=== PATIENT | male | born 1935 | race Caucasian/White ===

== ENCOUNTER 2016-10-22 14:47 | Outpatient (CLI) | payer MEDICARE, OTHER | END 2016-10-22 14:48 | DX: R31.9 Hematuria, unspecified (principal) ==

== ENCOUNTER 2017-03-24 14:39 | Outpatient (CLI) | payer MEDICARE, OTHER ==
--- NOTE | 2017-03-24 16:09 | XRAY Report ---
TWO VIEW CHEST: 03/24/2017 CLINICAL INDICATION: COPD. COMPARISON: 06/17/2015. FINDINGS: Frontal and lateral views of the chest demonstrate a normal cardiac silhouette. The lungs remain hyperinflated, with emphysematous changes. No focal consolidation, effusion, or pneumothorax i s evident. IMPRESSION: STABLE EMPHYSEMA. NO EVIDENCE OF ACUTE CARDIOPULMONARY DISEASE. JOB #: [id number] EXT JOB #:[id number]
== END 2017-03-24 14:40 | disposition home or self-care (01) ==
LOC: DI 14:39
PROVIDERS: ATTEND Internal Medicine
DX: J44.9 Chronic obstructive pulmonary disease, unspecified (principal)
CPT/HCPCS: 71020

== ENCOUNTER 2017-08-11 17:36 | Outpatient (CLI) | payer MEDICARE, OTHER ==
[2017-08-11 17:34] LABS: CREATININE 1.2 mg/dL (0.6-1.2)
[2017-08-11] MEDS ORDERED: IOPAMIDOL-300 100 ML VIAL ONE (17:53)
[2017-08-11] MEDS ORDERED: IOPAMIDOL-300 100 ML VIAL IVP ONE (18:38)
--- NOTE | 2017-08-11 19:21 | CT Report ---
EXAM: CT HEAD EXAM DATE: 08/11/2017 06:25 PM. CLINICAL HISTORY: Fall, headache and dizziness, tinnitus. COMPARISON: None. TECHNIQUE: Multiaxial CT images were obtained from the foramen magnum to the vertex. Reformats: Coron al. IV contrast: Without and with contrast, 100 cc Isovue-300. In accordance with CT protocol optimization, one or more of the following dose reduction techniques w ere utilized for this exam: automated exposure control, adjustment of mA and/or KV based on patient s ize, or use of iterative reconstructive technique. FINDINGS: There is mild diffuse cerebral volume loss. There is no mass, mass effect, midline shift or abnormal extra-axial collections. Size and configura tion of the ventricles appear normal. De La Cruz-white matter differentiation is preserved. Brainstem and c erebellum are unremarkable. There is no intracranial hemorrhage. There is no hyperdense vessel sign. Density of the dural venous sinus and cavernous sinus appears normal. Orbits and extracranial soft ti ssue are unremarkable. Calvarium, skull base appear unremarkable. Paranasal sinuses and mastoid air cells appear well aerated. Postcontrast CT shows no abnormal enhancement. Limited evaluation of the dural venous sinus structure s are unremarkable. IMPRESSION: No intracranial hemorrhage, midline shift or hydrocephalus. No apparent fracture. Mild diffuse cerebral volume loss. Unremarkable CT of the head with contrast, without abnormal enhancement. [facility] The call report notification system was initiated by Dr. Clarence Cope at 19:10 hrs on 08/11/17. The above findings were discussed with Dr. Cleary by Dr. Clarence Cope at 19:17 hrs on 08/11/17. Referring Provider Line: [phone] SITE ID: [id number]
== END 2017-08-11 17:37 | disposition home or self-care (01) ==
LOC: DI 17:36
PROVIDERS: ATTEND Internal Medicine
DX: R47.1 Dysarthria and anarthria (principal)
CPT/HCPCS: 70470; 82565; Q9967

== ENCOUNTER 2017-08-24 16:06 | Outpatient (CLI) | payer MEDICARE, OTHER ==
--- NOTE | 2017-08-26 11:21 | XRAY Report ---
DATE OF SERVICE: 08/24/2017 TWO VIEW CHEST: 08/24/2017 COMPARISON: Two view chest 03/24/2017. INDICATION: COPD. TECHNIQUE: Two views of the chest. FINDINGS: There is stable appearing scar of the right middle lobe and lingula. No focal consolidation is seen in other regards. No pneumothorax or pleural effusion. Mediastinum appears unremarkable. IMPRESSION: Chronic appearing changes. No evidence of acute thoracic process. TD: 08/25/2017 10:23 [facility]
== END 2017-08-24 16:07 | disposition home or self-care (01) ==
LOC: DI 16:06
PROVIDERS: ATTEND Internal Medicine
DX: J44.9 Chronic obstructive pulmonary disease, unspecified (principal)
CPT/HCPCS: 71046

== ENCOUNTER 2017-09-09 10:32 | Outpatient (CLI) | payer MEDICARE, OTHER ==
[2017-09-09 17:53] LABS: BASOPHILS # (AUTO) 0.1 10^3/uL (0.0-0.1); BASOPHILS % (AUTO) 0.9 %; EOSINOPHILS # (AUTO) 0.2 10^3/uL (0.0-0.7); EOSINOPHILS % (AUTO) 2.4 %; HGB - HEMOGLOBIN 15.3 g/dL (14.0-18.0); LYMPHOCYTES # (AUTO) 1.7 10^3/uL (1.5-3.5); LYMPHOCYTES % (AUTO) 19.1 %; MEAN CORPUSCULAR HEMOGLOBIN 28.5 pg (27.0-31.0); MEAN CORPUSCULAR HGB CONC 32.6 g/dL (32.0-36.0); MEAN CORPUSCULAR VOLUME 87.6 fL (80.0-94.0); MEAN PLATELET VOLUME 8.1 fL (7.4-11.4); MONOCYTES # (AUTO) 0.7 10^3/uL (0.0-1.0); MONOCYTES % (AUTO) 7.8 %; NEUTROPHILS # (AUTO) 6.3 10^3/uL (1.5-6.6); NEUTROPHILS % (AUTO) 69.8 %; PLT - PLATELET COUNT 274 10^3/uL (130-450); RED BLOOD COUNT 5.37 10^6/uL (4.70-6.10); RED CELL DISTRIBUTION WIDTH 13.7 % (12.0-15.0); WHITE BLOOD COUNT 9.1 x10^3/uL (4.8-10.8)
[2017-09-09 18:00] LABS: ALBUMIN 4.4 g/dL (3.2-5.5); ALBUMIN/GLOBULIN RATIO 1.6 (1.0-2.2); ALKALINE PHOSPHATASE 68 IU/L (42-121); ALT ALANINE AMINOTRANSFERASE 25 IU/L (10-60); AST ASPARTATE AMINOTRANSFERASE 22 IU/L (10-42); BILIRUBIN,TOTAL 1.6 mg/dL (0.2-1.0); BUN - BLOOD UREA NITROGEN 31 mg/dL (6-20); CALCIUM 9.1 mg/dL (8.5-10.3); CARBON DIOXIDE - CO2 25 mmol/L (21-32); CHLORIDE 103 mmol/L (101-111); CHOLESTEROL 134 mg/dL; CREATININE 1.4 mg/dL (0.6-1.2); GFR - MDRD 49 (>89); GLUCOSE 89 mg/dL (70-100); HDL CHOLESTEROL 45 mg/dL; LDL CHOLESTEROL,CALCULATED 63 mg/dL; LDL/HDL RATIO 1.4 (<3.6); SODIUM 134 mmol/L (135-145); TOTAL PROTEIN 7.2 g/dL (6.7-8.2); VLDL CHOLESTEROL 26 mg/dL
[2017-09-09 18:09] LABS: HB2 TOTAL 16.4 g/dL; HEMOGLOBIN A1C 0.61 g/dL; HEMOGLOBIN A1C % 5.6 % (4.6-6.2)
[2017-09-10 10:10] LABS: CRP - C-REACTIVE PROTEIN < 1.0 mg/dL (0-1.0)
== END 2017-09-09 10:33 | disposition home or self-care (01) ==
LOC: LAB.F 10:32
PROVIDERS: ATTEND Physician Assistant Medical
DX: R73.9 Hyperglycemia, unspecified (principal); I86.8 Varicose veins of other specified sites; M19.90 Unspecified osteoarthritis, unspecified site; I10 Essential (primary) hypertension; E78.5 Hyperlipidemia, unspecified; R47.1 Dysarthria and anarthria; R63.5 Abnormal weight gain
CPT/HCPCS: 36415; 80053; 80061; 83036; 84443; 85025; 85651; 86140

== ENCOUNTER 2018-09-19 09:20 | Outpatient (CLI) | payer MEDICARE, OTHER ==
[2018-09-19 17:43] LABS: BASOPHILS # (AUTO) 0.1 10^3/uL (0.0-0.1); BASOPHILS % (AUTO) 0.6 %; EOSINOPHILS # (AUTO) 0.1 10^3/uL (0.0-0.7); EOSINOPHILS % (AUTO) 0.7 %; HGB - HEMOGLOBIN 15.7 g/dL (14.0-18.0); LYMPHOCYTES # (AUTO) 1.5 10^3/uL (1.5-3.5); LYMPHOCYTES % (AUTO) 15.4 %; MEAN CORPUSCULAR HGB CONC 32.6 g/dL (32.0-36.0); MEAN PLATELET VOLUME 7.7 fL (7.4-11.4); MONOCYTES # (AUTO) 0.7 10^3/uL (0.0-1.0); MONOCYTES % (AUTO) 7.3 %; NEUTROPHILS # (AUTO) 7.2 10^3/uL (1.5-6.6); PLT - PLATELET COUNT 292 10^3/uL (130-450); RED BLOOD COUNT 5.43 10^6/uL (4.70-6.10); RED CELL DISTRIBUTION WIDTH 14.4 % (12.0-15.0); WHITE BLOOD COUNT 9.5 x10^3/uL (4.8-10.8)
[2018-09-19 17:56] LABS: ALBUMIN 4.4 g/dL (3.2-5.5); ALBUMIN/GLOBULIN RATIO 1.4 (1.0-2.2); ALKALINE PHOSPHATASE 54 IU/L (42-121); ALT ALANINE AMINOTRANSFERASE 20 IU/L (10-60); AST ASPARTATE AMINOTRANSFERASE 19 IU/L (10-42); BILIRUBIN,TOTAL 1.6 mg/dL (0.2-1.0); BUN - BLOOD UREA NITROGEN 33 mg/dL (6-20); CALCIUM 9.6 mg/dL (8.5-10.3); CARBON DIOXIDE - CO2 28 mmol/L (21-32); CHLORIDE 100 mmol/L (101-111); CHOL/HDL RATIO 4.5 (<5.0); CHOLESTEROL 219 mg/dL; CREATININE 1.3 mg/dL (0.6-1.2); GFR - MDRD 53 (>89); GLUCOSE 95 mg/dL (70-100); HDL CHOLESTEROL 49 mg/dL; LDL CHOLESTEROL,CALCULATED 143 mg/dL; LDL/HDL RATIO 2.9 (<3.6); SODIUM 136 mmol/L (135-145); TOTAL PROTEIN 7.5 g/dL (6.7-8.2); VLDL CHOLESTEROL 27 mg/dL
[2018-09-19 18:20] LABS: HB2 TOTAL 16.6 g/dL; HEMOGLOBIN A1C 0.61 g/dL; HEMOGLOBIN A1C % 5.5 % (4.6-6.2)
== END 2018-09-19 09:21 | disposition home or self-care (01) ==
LOC: LAB.F 09:20
PROVIDERS: ATTEND Internal Medicine
DX: R73.9 Hyperglycemia, unspecified (principal); M19.90 Unspecified osteoarthritis, unspecified site; I10 Essential (primary) hypertension; E78.5 Hyperlipidemia, unspecified; R63.5 Abnormal weight gain; Z79.899 Other long term (current) drug therapy
CPT/HCPCS: 36415; 80053; 80061; 83036; 83721; 84443; 85025

== ENCOUNTER 2018-11-24 07:40 | Day surgery (SDC) | payer MEDICARE, OTHER ==
[2018-11-24] MEDS ORDERED: LACTATED RINGERS 1,000 ML IV ONE (08:18)
[2018-11-24] MEDS ORDERED: MIDAZOLAM 2 MG/2 ML VIAL IVP ONE (09:05)
[2018-11-24] MEDS ORDERED: fentaNYL 100 MCG/2 ML VIAL IVP ONE (09:05)
[2018-11-24 10:08] VITALS: BP 116/69
== END 2018-11-24 07:41 | disposition home or self-care (01) ==
LOC: SDS 07:40
PROVIDERS: ATTEND Internal Medicine Gastroenterology
PROC: 0DBL8ZZ Excision of Transverse Colon, Via Natural or Artificial Opening Endoscopic (ICD-10-PCS; 2018-11-24)
PROC: 0DBM8ZZ Excision of Descending Colon, Via Natural or Artificial Opening Endoscopic (ICD-10-PCS; principal; 2018-11-24 09:00)
DX: D12.4 Benign neoplasm of descending colon (principal); D12.3 Benign neoplasm of transverse colon; K55.20 Angiodysplasia of colon without hemorrhage; K57.30 Diverticulosis of large intestine without perforation or abscess without bleeding; I10 Essential (primary) hypertension; J44.9 Chronic obstructive pulmonary disease, unspecified; E66.9 Obesity, unspecified; Z68.37 Body mass index [BMI] 37.0-37.9, adult; Z87.891 Personal history of nicotine dependence
CPT/HCPCS: 45380; J7120

== ENCOUNTER 2019-01-11 13:28 | Outpatient (CLI) | payer MEDICARE, OTHER ==
[2019-01-11] MEDS ORDERED: ALBUTEROL NEB 2.5 MG/3 ML INH ONE (14:00)
== END 2019-01-11 13:29 | disposition home or self-care (01) ==
LOC: RT 13:28
PROVIDERS: ATTEND Family Medicine
DX: J44.9 Chronic obstructive pulmonary disease, unspecified (principal)
CPT/HCPCS: 94010

== ENCOUNTER 2019-05-08 13:41 | Outpatient (CLI) | payer MEDICARE, OTHER ==
[2019-05-08 17:15] VITALS: BP 100/60
--- NOTE | 2019-05-08 17:15 | SLEEP CARE CONSULTATION ---
Information from patient questionnaire entered by Kallie Storm. I have reviewed and concur with the information entered by Kallie Storm. This document represents the service I personally performed and the decisions made by me, Jessica Akhtar MD, [facility]. History of Present Illness Reason for Visit: New patient, Previously diagnosed sleep apnea, sleep apnea on CPAP therapy Chief Complaint: reports: Unrefreshed sleep, Snoring, Excessive daytime sleepiness, Fatigue, Frequent awakenings at night Duration of Symptoms: Over 10 years Usual bedtime: 11 pm Time it takes to fall asleep: 30 minutes Snores at night: Yes Observed to quit breathing while asleep: No Sleeps alone due to snoring: No Number of times waking at night: 4-5 Reasons for waking at night: reports: Bathroom Toss, Turn, or Twitch while sleeping: Yes Recalls having dreams: Yes Usually gets out of bed at: 9:30 am Feels refreshed in the morning: Yes (once I take my ritalin and lexapro) Sleepy or fatigued during the day: No Ever fallen asleep while driving: No Takes day naps: Yes (occasionally) Dreams during day naps: Yes Prior sleep studies: No Additional HPI information: I had the pleasure of seeing Mr. Carballo today regarding the possibility of him having a sleep disorder. As you know, he is an 84 year old gentleman who complains of loud snore. The patient tells me that he normally goes to bed around 11 pm, and it takes him approximately 30 minutes to fall asleep. He has been told that he snores loudly and irregularly at night. He has never been observed to stop breathing in his sleep. His can still sleep in the same bed. He can recall waking up on the average of 4 - 5 times during the night. Most of the time he wakes up because of having to use the bathroom. He has never awakened because of his own snoring, choking, or having to gasp for air. There is not a lot of tossing and turning in his sleep. He has somniloquy (sleep talking) but not somnambulism (sleep walking). Generally he can recall having dreams. In the morning he usually gets up out of the bed around 10 a.m. not feeling refreshed nor rested. He usually does not have a morning headache. During the day he does not feel sleepy or fatigued. His score on [place] Sleepiness Scale is 4 out of 24. He has never fallen asleep while driving nor has had any accident due to sleepiness. He usually does not take naps during the day. Upon falling asleep during the day he reports having dreams. He has never had sleep paralysis, experienced cataplexy or symptoms of restless leg syndrome. He denies having impaired concentration during the day. - Parasomnia Symptoms Ever been unable to move upon waking from sleep: No Ever felt weak in the knees when startled or emotional: No Bothered by creepy, crawly, restless sensations in legs: No Problems with memory or concentration: No Subjective Initial [place] Sleepiness Scale score: 4 Past Medical History Past Medical History: reports: Emphysema, Attention deficit Social History The patient's occupation is Retired. Patient is and lives in [place]. Have you smoked in the past 12 months: No Cigarettes per day (20/pack): 10 Years of smokin Quit date: Smoking Pack Years: 6.0 Alcohol use: Yes Family History Family history of sleep disordered breathing: No Allergies and Home Medications Drug allergies reviewed: Yes Home medication list reviewed: Yes Allergy and home medication list: Ritalin 80 mg a day, Lexpro, a statin, metoprolol, vitamin D, nebulizer Review of Systems Weight gain over past 5 years: 70 Cardiovascular: reports: leg or foot swelling Respiratory: reports: shortness of breath, chronic cough Gastrointestinal: reports: difficulty swallowing Urinary: reports: impotence Neurological: denies: headaches, seizure, head trauma, disorientation, speech dysfunction, gait or balance problems, fainting or unconsciousness, other Psychiatric: reports: Attention Deficit Hyperactivity Ear/Nose/Throat: reports: tonsillectomy. denies: nasal congestion, sinus problems, nose bleeds, dry mouth/throat, hoarseness, injury to nose, wisdom teeth removed, other Endocrine: denies: thyroid disease, history of goiter, sluggishness, too hot or cold, excessive thirst, increased appetite, increased urination, unexplained weakness, other Immunologic: reports: rash, itching Physical Exam Vital signs obtained and entered by: Dr. Akhtar Blood Pressure: 100/60 Cuff size: long Heart Rate: 70 O2 Saturation: 98 Height: 5 ft 9 in Weight (kg): 250 lb Body Mass Index: 36.9 BMI Classification: Class 2 Mood/affect: normal HEENT: No craniofacial malformation Nostrils: patent to airflow Turbinates: normal Septum: midline Mouth and throat: narrow oropharynx Soft palate: long Hard palate: normal Uvula: normal Uvula visualization: 25% Mallampati Class III Tongue: normal in size Tonsils: absent bilaterally Chin and jaw: normal size and position Neck: normal w/o lymphadenopathy or thyromegaly Heart: regular rate and rhythm Lungs: clear bilaterally Abdomen: soft Extremities: 1+ edema Neurologic: intact Impression and Plan 1. Obstructive Sleep Apnea-Hypopnea Syndrome, as suggested by history of loud and irregular snoring, frequent awakenings during the night, and daytime hypersomnolence. Narrow oropharynx and obesity are common predisposing factors for obstructive sleep apnea-hypopnea syndrome. Pathophysiology of sleep- disordered breathing was discussed. I recommend proceeding to polysomnography to confirm the diagnosis and to assess severity. If he has significant sleep disordered breathing, a manual CPAP titration study will also be performed to find the optimal treatment pressure. I informed the patient of what the sleep studies involve and after some discussion, he agreed to proceed. Plan: 1. Schedule polysomnography + manual CPAP titration study and return in 1 to 2 weeks after the study to discuss result and initiate therapy. 2. Avoid long distance driving or when feeling sleepy. 3. Avoid alcohol, sedative and muscle relaxant around bedtime. 4. Attempt to lose weight. I spent 100% of this 15 minute visit face to face with the patient with greater than 50% of this was spent time counseling the patient and coordination of care.
== END 2019-05-08 13:42 | disposition home or self-care (01) ==
LOC: SC 13:41
PROVIDERS: ATTEND Internal Medicine Pulmonary Disease
DX: G47.33 Obstructive sleep apnea (adult) (pediatric) (principal)
CPT/HCPCS: 99203; G0463; 99212

== ENCOUNTER 2019-05-26 20:18 | Outpatient (CLI) | payer MEDICARE, OTHER | END 2019-05-26 20:19 | disposition home or self-care (01) | LOC: SC 20:18 | PROVIDERS: ATTEND Internal Medicine Pulmonary Disease | DX: G47.33 Obstructive sleep apnea (adult) (pediatric) (principal); G47.61 Periodic limb movement disorder; G47.8 Other sleep disorders; E66.9 Obesity, unspecified; Z68.36 Body mass index [BMI] 36.0-36.9, adult | CPT/HCPCS: 95810 ==

== ENCOUNTER 2020-01-18 11:38 | Outpatient (CLI) | payer MEDICARE, OTHER ==
[2020-01-18 11:59] LABS: BASOPHILS # (AUTO) 0.1 10^3/uL (0.0-0.1); BASOPHILS % (AUTO) 0.7 %; EOSINOPHILS # (AUTO) 0.1 10^3/uL (0.0-0.7); EOSINOPHILS % (AUTO) 1.4 %; HGB - HEMOGLOBIN 15.6 g/dL (14.0-18.0); LYMPHOCYTES # (AUTO) 1.3 10^3/uL (1.5-3.5); LYMPHOCYTES % (AUTO) 14.3 %; MEAN CORPUSCULAR HEMOGLOBIN 28.1 pg (27.0-31.0); MEAN CORPUSCULAR HGB CONC 31.8 g/dL (32.0-36.0); MEAN CORPUSCULAR VOLUME 88.3 fL (80.0-94.0); MONOCYTES # (AUTO) 0.6 10^3/uL (0.0-1.0); MONOCYTES % (AUTO) 6.4 %; NEUTROPHILS # (AUTO) 6.9 10^3/uL (1.5-6.6); NEUTROPHILS % (AUTO) 76.8 %; PLT - PLATELET COUNT 267 10^3/uL (130-450); RED BLOOD COUNT 5.56 10^6/uL (4.70-6.10); RED CELL DISTRIBUTION WIDTH 13.7 % (12.0-15.0)
[2020-01-18 12:11] LABS: ALBUMIN 4.5 g/dL (3.2-5.5); ALBUMIN/GLOBULIN RATIO 1.4 (1.0-2.2); ALKALINE PHOSPHATASE 56 IU/L (42-121); ALT ALANINE AMINOTRANSFERASE 26 IU/L (10-60); AST ASPARTATE AMINOTRANSFERASE 23 IU/L (10-42); BILIRUBIN,TOTAL 1.4 mg/dL (0.2-1.0); BUN - BLOOD UREA NITROGEN 28 mg/dL (6-20); CALCIUM 9.6 mg/dL (8.5-10.3); CARBON DIOXIDE - CO2 29 mmol/L (21-32); CHLORIDE 102 mmol/L (101-111); CHOL/HDL RATIO 2.8 (<5.0); CHOLESTEROL 141 mg/dL; CREATININE 1.5 mg/dL (0.6-1.2); GLUCOSE 117 mg/dL (70-100); HDL CHOLESTEROL 50 mg/dL; LDL CHOLESTEROL,CALCULATED 65 mg/dL; LDL/HDL RATIO 1.3 (<3.6); SODIUM 138 mmol/L (135-145); TOTAL PROTEIN 7.8 g/dL (6.7-8.2); VLDL CHOLESTEROL 26 mg/dL
== END 2020-01-18 11:39 | disposition home or self-care (01) ==
LOC: LAB 11:38
PROVIDERS: ATTEND Family Medicine
DX: F31.9 Bipolar disorder, unspecified (principal); L30.9 Dermatitis, unspecified; F90.0 Attention-deficit hyperactivity disorder, predominantly inattentive type; R73.9 Hyperglycemia, unspecified; I10 Essential (primary) hypertension; E80.6 Other disorders of bilirubin metabolism; J44.9 Chronic obstructive pulmonary disease, unspecified; E78.5 Hyperlipidemia, unspecified
CPT/HCPCS: 36415; 80053; 80061; 83721; 84443; 85025

== ENCOUNTER 2020-02-13 13:41 | Outpatient (CLI) | payer MEDICARE, OTHER ==
--- NOTE | 2020-02-13 14:02 | SLEEP CARE CONSULTATION ---
Information from patient questionnaire entered by Kallie Storm. I have reviewed and concur with the information entered by Kallie Storm. This document represents the service I personally performed and the decisions made by me, Jessica Akhtar MD, [facility]. History of Present Illness Service Date and Time: 02/13/2020 1341 Initial [place] Sleepiness Scale score: 4 (in 2019) Current [place] Sleepiness Scale score: 5 Additional HPI information: HPI: Mr. Carballo was called for a follow up of the sleep study he had last year (he said he was too busy to come in for a follow up). The polysomnography showed that the patient had poor sleep efficiency due to sleep onset insomnia and several prolonged awakenings during the night. The sleep architecture was abnormal for severe sleep fragmentation and lack of REM and slow wave sleep (N3). Respiratory monitoring showed very severe obstructive sleep apnea-hypopnea (AHI = 81.8) associated with frequent arousals, oxyhemoglobin desaturation and mild hypoxia (juliet oxygen saturation of 82%). The respiratory events occurred independently of sleep stage and body position (supine AHI = 87.7; non-supine = 75.91). Snore was light in intensity. There was severe periodic leg movement of sleep contributing to the sleep fragmentation. Cardiac rhythm was normal sinus rhythm without significant arrhythmia. No abnormal behavior (parasomnia) observed during the night except for somniloquy. The patient was informed of these findings. I explained to him the pathophysiology behind obstructive sleep apnea. We then spent quite a bit of time discussing different treatment options. For mild obstructive sleep apnea, surgery and oral appliance are alternatives to nasal CPAP therapy but in moderate or severe cases, nasal CPAP is the most effective and reliable treatment. Weight loss in an obese individual is strongly recommended. After some discussion, he opted to go with the nasal CPAP therapy. Allergies and Home Medications Drug allergies reviewed: Yes Home medication list reviewed: Yes Review of Systems Review of systems same as previous: Yes Physical Exam Height: 5 ft 9 in Weight: 250 lb Body Mass Index: 36.9 BMI Classification: Obese Impression and Plan IMPRESSION: 1. Obstructive Sleep Apnea-Hypopnea Syndrome, very severe, associated with mild hypoxemia and sleep fragmentation. Obviously this is the cause of the patients symptoms of unrefreshed sleep, and excessive daytime sleepiness. Because his sleep study was more than 6 months old, another one will need to be performed in order for Medicare to cover the CPAP therapy. PLAN: 1. Repeat the in-laboratory polysomnography. Split if indicated. 2. Attempt to lose weight and avoid alcohol consumption near bedtime. 3. The patient is again cautioned about driving. 4. Return for a follow up after the sleep study. Visit Type: In Office Time Spent with Patient (minutes): 15 Provider Statement: I spent 100% of the Face to Face Visit with the patient with greater than 50% spent counseling the patient and coordination of care.
== END 2020-02-13 13:42 | disposition home or self-care (01) ==
LOC: SC 13:41
PROVIDERS: ATTEND Internal Medicine Pulmonary Disease
DX: G47.33 Obstructive sleep apnea (adult) (pediatric) (principal); E66.9 Obesity, unspecified; Z68.36 Body mass index [BMI] 36.0-36.9, adult
CPT/HCPCS: 99213; G0463; 99212

== ENCOUNTER 2020-03-01 19:30 | Outpatient (CLI) | payer MEDICARE, OTHER | END 2020-03-01 19:31 | disposition home or self-care (01) | LOC: SC 19:30 | PROVIDERS: ATTEND Internal Medicine Pulmonary Disease | DX: G47.33 Obstructive sleep apnea (adult) (pediatric) (principal); G47.61 Periodic limb movement disorder | CPT/HCPCS: 95810 ==

== ENCOUNTER 2020-06-24 13:40 | Outpatient (CLI) | payer MEDICARE, OTHER ==
--- NOTE | 2020-06-24 14:00 | SLEEP CARE CONSULTATION ---
Information from patient questionnaire entered by Olivia Banda. I have reviewed and concur with the information entered by Olivia Banda. This document represents the service I personally performed and the decisions made by me, Sultana Cruz ARNP. History of Present Illness Service Date and Time: 06/24/2020 1340 Previous diagnosis: Mild, Obstructive Sleep Apnea-Hypopnea Syndrome AHI: 7.7 Reason for follow up: first compliance (04/16 setup) Equipment type: CPAP Equipment obtained from: [employer] (getting supplies as needed) Mask style: Nasal pillows Backup mask available: Yes (extra mask) Last cushion change: 2 days ago Year and Where: 2019 [facility] Type of Sleep Study: Polysomnography HPI additional information: OLGA MOREL was diagnosed to have mild, AHI 7.7, obstructive sleep apnea- hypopnea syndrome and returns via Telehealth visit today for CPAP therapy first compliance follow-up. CPAP Compliance Data - Data Reviewed with Patient Average duration of nightly device use: 9 h 19 min Compliance rate %: 97 Current pressure setting (cmH2O): 4-15 Humidity settin Heated hose settin% Average residual AHI: 3.9 Central apnea: 0.0 Obstructive apnea: 0.9 Average large leak: 31.9 L/min Subjective Missed days of use due to: reports: illness Patient concerns: denies: aerophagia, mask discomfort, air blowing in eyes, mask leak noise, condensation in mask/hose, nasal congestion, dry mouth, nose, throat, epistaxis, other Observed to snore while using device: No Current pressure setting perceived as: comfortable On therapy, patient: reports: sleeping better, awakening more refreshed, being more awake and alert during the day, more rested overall. denies: drowsiness while driving Initial [place] Sleepiness Scale score: 4 (in 2019) Current [place] Sleepiness Scale score: 2 Allergies and Home Medications Drug allergies reviewed: Yes (NKDA) Home medication list reviewed: Yes (No changes) Review of Systems Review of systems same as previous: Yes (no changes) Physical Exam Vital signs obtained and entered by: Telehealth visit, no vitals obtained Height: 5 ft 9 in Impression and Plan 1. Obstructive Sleep Apnea-Hypopnea Syndrome, mild, with good treatment compliance and good apnea control. On CPAP therapy, the patient has better sleep quality and is more rested overall. His median pressure is 8.8 cm H2O, his 95% is 12.1 cm H2O and maximum pressure used is 13.8 cm H2O. I will adjust his pressure setting to cover the pressure needed for treatment to 9-14 cm H2O. He is to follow up in 1-2 months for 2nd compliance and pressure change follow up. Patient's apnea severity and rationale for treatment to reduce apnea, improve sleep quality and reduce cardiovascular and cerebrovascular events was reviewed. I also reviewed the benefit of consistent device use of CPAP for his emphysema and Attention Deficit. * Change autCPAP pressure to 9-14 cmH2O * Notify me if snoring with mask or feeling that the pressure is too much or too little * Attempt to lose weight * Call this office if any problems using CPAP * Return for follow up in 1-2 months, or sooner if concerns arise Counseling Topics: Spare mask Visit Type: Telehealth Video Video Type: [employer] Patient Location: Home Location of Provider: Office Time Spent with Patient (minutes): 17 Provider Statement: I spent 100% of the Telehealth Video Call with the patient with greater than 50% spent counseling the patient and coordination of care.
== END 2020-06-24 23:59 ==
LOC: SC 13:40
PROVIDERS: ATTEND Nurse Practitioner Family
DX: G47.33 Obstructive sleep apnea (adult) (pediatric) (principal)

== ENCOUNTER 2020-07-23 08:00 | Outpatient (CLI) | payer MEDICARE, OTHER ==
[2020-07-23 18:29] LABS: BASOPHILS # (AUTO) 0.1 10^3/uL (0.0-0.1); BASOPHILS % (AUTO) 0.6 %; EOSINOPHILS # (AUTO) 0.1 10^3/uL (0.0-0.7); EOSINOPHILS % (AUTO) 0.8 %; HGB - HEMOGLOBIN 15.2 g/dL (14.0-18.0); LYMPHOCYTES # (AUTO) 1.3 10^3/uL (1.5-3.5); LYMPHOCYTES % (AUTO) 14.4 %; MEAN CORPUSCULAR HEMOGLOBIN 29.7 pg (27.0-31.0); MEAN CORPUSCULAR HGB CONC 32.1 g/dL (32.0-36.0); MEAN CORPUSCULAR VOLUME 92.6 fL (80.0-94.0); MONOCYTES # (AUTO) 0.6 10^3/uL (0.0-1.0); MONOCYTES % (AUTO) 6.8 %; NEUTROPHILS # (AUTO) 6.7 10^3/uL (1.5-6.6); NEUTROPHILS % (AUTO) 76.8 %; PLT - PLATELET COUNT 273 10^3/uL (130-450); RED BLOOD COUNT 5.11 10^6/uL (4.70-6.10); RED CELL DISTRIBUTION WIDTH 13.9 % (12.0-15.0); WHITE BLOOD COUNT 8.7 x10^3/uL (4.8-10.8)
[2020-07-23 18:36] LABS: ALBUMIN 4.4 g/dL (3.2-5.5); ALBUMIN/GLOBULIN RATIO 1.5 (1.0-2.2); BILIRUBIN,TOTAL 1.6 mg/dL (0.2-1.0); CALCIUM 10.3 mg/dL (8.5-10.3); CREATININE 1.4 mg/dL (0.6-1.2); TOTAL PROTEIN 7.3 g/dL (6.7-8.2)
[2020-07-23 19:54] LABS: HEMOGLOBIN A1c% 5.9 % (4.27-6.07)
== END 2020-07-23 23:59 | disposition home or self-care (01) ==
LOC: LAB.WCP 08:00
PROVIDERS: ATTEND Family Medicine
DX: I10 Essential (primary) hypertension (principal); R73.9 Hyperglycemia, unspecified; F31.9 Bipolar disorder, unspecified; G47.30 Sleep apnea, unspecified; F90.0 Attention-deficit hyperactivity disorder, predominantly inattentive type; J44.9 Chronic obstructive pulmonary disease, unspecified; E66.9 Obesity, unspecified
CPT/HCPCS: 36415; 80053; 83036; 84443; 85025

== ENCOUNTER 2020-08-14 15:16 | Outpatient (CLI) | payer MEDICARE, OTHER | END 2020-08-14 15:17 | disposition home or self-care (01) | LOC: COV 15:16 | PROVIDERS: ATTEND Family Medicine | DX: R19.7 Diarrhea, unspecified (principal); Z20.828 Contact with and (suspected) exposure to other viral communicable diseases ==

== ENCOUNTER 2020-11-21 13:13 | Emergency (ER) | payer MEDICARE, OTHER ==
[2020-11-21] MEDS ORDERED: SULFAMETH/TRIMETH DS 800/160 MG TABLET PO STA (13:34)
[2020-11-21] MEDS ORDERED: cephALEXin 250 MG CAPSULE PO STA (13:34)
--- NOTE | 2020-11-21 13:37 | ED Physician Documentation ---
History of Present Illness - Stated complaint Stated Complaint: RT FT SWELLING - Chief complaint Chief Complaint: Ext Problem - History obtained from History obtained from: Patient - History of Present Illness Timing: How many weeks ago (1) Pain level max: 0 Pain level now: 0 - Additonal information Additional information: 85-year-old male presents to the emergency department with swelling to the right great toe and right second toe. Now has redness extending up the right foot. 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 He states there was a small amount of pus yesterday. No fevers. No chills. Nothing makes it better or worse. Review of Systems Constitutional: denies: Fever, Chills Respiratory: denies: Cough Skin: denies: Rash Musculoskeletal: denies: Neck pain, Back pain Neurologic: denies: Headache PD PAST MEDICAL HISTORY - Past Medical History Cardiovascular: Hypertension, High cholesterol Respiratory: COPD, Emphysema Endocrine/Autoimmune: None GI: GERD, Colon polyps, Hemorrhoids, Hepatitis : None HEENT: None Psych: ADD/ADHD Musculoskeletal: None Derm: None, Other - Past Surgical History Past Surgical History: Yes General: Colonoscopy, Other Ortho: Knee replacement HEENT: Cataracts - Present Medications Home Medications: Ambulatory Orders Medication Instructions Recorded Confirmed Atorvastatin Calcium [Lipitor] 40 mg PO DAILY 09/19/13 10/30/15 Escitalopram Oxalate [Lexapro] 20 mg PO DAILY 09/19/13 10/31/15 Methylphenidate HCl [Ritalin] 80 mg PO DAILY 09/19/13 10/30/15 Metoprolol Tartrate [Lopressor] 25 mg PO BID 09/19/13 10/31/15 Sulfamethox/Trimeth 800/160 1 each PO BID #20 tablet 11/21/20 [Bactrim Ds 800/160] cephALEXin [Keflex] 500 mg PO Q6H #40 cap 11/21/20 - Allergies Allergies/Adverse Reactions: Allergies Allergy/AdvReac Type Severity Reaction Status Date / Time No Known Drug Allergies Allergy Verified 11/21/20 13:29 - Social History Does the pt smoke?: No Smoking Status: Never smoker Does the pt drink ETOH?: Yes Does the pt have substance abuse?: No PD ED PE NORMAL - Vitals Vital signs reviewed: Yes - General General: Alert and oriented X 3, No acute distress - HEENT HEENT: Moist mucous membranes - Derm Derm: Warm and dry - Extremities Extremities: Other (Mild swelling and erythema to the right great toe and the tip of the right second toe. There is mild erythema across the dorsum of the foot, to approximately the midfoot. No warmth. No tenderness. There is pain with range of motion of the great toe. Neurovascular intact) - Neuro Neuro: Alert and oriented X 3 - Psych Psych: Normal mood, Normal affect Results - Vitals Vitals: Vital Signs - 24 hr 11/21/20 13:24 Temperature 36.4 C L Heart Rate 93 Respiratory 20 Rate Blood Pressure 172/103 H O2 Saturation 95 Oxygen O2 Source [With Activity] Nasal cannula O2 Source [Without Activity] Nasal cannula O2 Source Room air PD MEDICAL DECISION MAKING - ED course Complexity details: reviewed results, re-evaluated patient, considered differential, d/w patient ED course: There is nothing to drain from the toe today. Appears to be a mild cellulitis. He has been worked up recently for gout. We will place on antibiotics for home. We will have him follow-up with his doctor for further care. Patient is well- appearing, nontoxic. Afebrile. Patient counseled regarding signs and symptoms for which I believe and urgent re-evaluation would be necessary. Patient with good understanding of and agreement to plan and is comfortable going home at this time This document was made in part using voice recognition software. While efforts are made to proofread this document, sound alike and grammatical errors may occur. Departure - Departure Disposition: 01 Home, Self Care Clinical Impression: Cellulitis Qualifiers: Site of cellulitis: extremity Site of cellulitis of extremity: lower extremity Laterality: right Qualified Code(s): L03.115 - Cellulitis of right lower limb Condition: Good Instructions: ED Infec Skin Cellulitis Follow-Up: Elan Trent MD [Primary Care Provider] - Within 1 week Prescriptions: Sulfamethox/Trimeth 800/160 [Bactrim Ds 800/160] 1 each PO BID #20 tablet cephALEXin [Keflex] 500 mg PO Q6H #40 cap Comments: Take all antibiotics until gone. Follow-up with your doctor in 1 week for recheck. Return sooner if you worsen. You should start to notice improvement within 24 to 48 hours.
[2020-11-21 14:22] VITALS: BP 136/94
--- OUTSIDE RECORDS SUMMARY | 2020-11-27 01:03 | EXTERNAL MEDICAL SUMMARY RPT | Continuity of Care Document ---
:1935 Demographics Phone Unavailable Preferred Language Unknown Marital Status Unknown Presybeterian Affiliation Unknown Race Unknown Ethnic Group Unknown Author Organization [place] Address [address] [place] [address] Phone Social History date description facility [phone]
== END 2020-11-21 14:22 | disposition home or self-care (01) ==
LOC: ED 13:13
DX: L03.031 Cellulitis of right toe (principal); L03.115 Cellulitis of right lower limb; I10 Essential (primary) hypertension
CPT/HCPCS: 99282; 99284; A9270

== ENCOUNTER 2020-12-14 10:29 | Emergency (ER) | payer MEDICARE ==
--- OUTSIDE RECORDS SUMMARY | 2020-12-14 10:33 | EXTERNAL MEDICAL SUMMARY RPT | Continuity of Care Document ---
:1935 Demographics Phone Unavailable Preferred Language Unknown Marital Status Unknown Amish Affiliation Unknown Race Unknown Ethnic Group Unknown Author Organization [place] Address [address] [id number] Phone Social History date description facility [phone]
--- OUTSIDE RECORDS SUMMARY | 2020-12-14 10:58 | EXTERNAL MEDICAL SUMMARY RPT | Continuity of Care Document ---
:1935 Demographics Phone Unavailable Preferred Language Unknown Marital Status Unknown Catholic Affiliation Unknown Race Unknown Ethnic Group Unknown Author Organization [facility] Address [address] [id number] Phone Social History date description facility [phone]
--- NOTE | 2020-12-14 12:33 | XRAY Report ---
PROCEDURE: Toe(s) RT INDICATIONS: infection, clinical concern for soft tissue gas TECHNIQUE: 3 views of the right toe(s) acquired. COMPARISON: None available FINDINGS: Bones: No fractures or dislocations. Bone erosion can be seen involving the distal and mid phalanx of the second toe. Soft tissues: Soft tissue swelling is seen involving the second toe, with minimal, potential soft tis sadaf gas. 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 Soft tissue swelling is seen, with potential minimal soft tissue gas. Reviewed by: John Barrios MD on 12/14/2020 11:31 AM RONALD Approved by: John Barrios MD on 12/14/2020 11:31 AM RONALD Station ID: [id number]
[2020-12-14] MEDS ORDERED: cefTRIAXone 1 GM in SODIUM CHLORIDE 0.9% MINIBAG 100 ML IV STA (13:11)
[2020-12-14] MEDS ORDERED: VANCOMYCIN INJ 1.25 GM in SODIUM CHLORIDE 0.9% 250 ML IV STA (13:11)
[2020-12-14] MEDS ORDERED: VANCOMYCIN INJ 1 GM in SODIUM CHLORIDE 0.9% 500 ML IV ONE (13:45)
[2020-12-14] MEDS ORDERED: VANCOMYCIN INJ 1 GM in SODIUM CHLORIDE 0.9% 250 ML IV ONE (13:48)
--- NOTE | 2020-12-14 14:07 | ED Physician Documentation ---
History of Present Illness - Stated complaint Stated Complaint: RT TOE PX - Chief complaint Chief Complaint: Ext Problem - History obtained from History obtained from: Patient - Additonal information Additional information: 85-year-old man with past medical history of high blood pressure presents with right first and second toe pain status post Bactrim and Keflex treatment at the beginning of November, initially improved with improvement in erythema, now progressively worsening over the past couple days. 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 He denies fevers, difficulty ambulating, pain in the ankles or anywhere else. Review of Systems Ten Systems: 10 systems reviewed and negative Constitutional: denies: Fever, Chills Skin: reports: Other (RLE erythema and pain) PD PAST MEDICAL HISTORY - Past Medical History Past Medical History: Yes Cardiovascular: Hypertension, High cholesterol Respiratory: COPD, Emphysema Endocrine/Autoimmune: None GI: GERD, Colon polyps, Hemorrhoids, Hepatitis : None HEENT: None Psych: ADD/ADHD Musculoskeletal: None Derm: None, Other - Past Surgical History Past Surgical History: Yes General: Colonoscopy, Other Ortho: Knee replacement HEENT: Cataracts - Present Medications Home Medications: Ambulatory Orders Medication Instructions Recorded Confirmed Atorvastatin Calcium [Lipitor] 40 mg PO DAILY 09/19/13 10/30/15 Escitalopram Oxalate [Lexapro] 20 mg PO DAILY 09/19/13 10/31/15 Methylphenidate HCl [Ritalin] 80 mg PO DAILY 09/19/13 10/30/15 Metoprolol Tartrate [Lopressor] 25 mg PO BID 09/19/13 10/31/15 Sulfamethox/Trimeth 800/160 1 each PO BID #20 tablet 11/21/20 [Bactrim Ds 800/160] cephALEXin [Keflex] 500 mg PO Q6H #40 cap 11/21/20 - Allergies Allergies/Adverse Reactions: Allergies Allergy/AdvReac Type Severity Reaction Status Date / Time No Known Drug Allergies Allergy Verified 11/21/20 13:29 - Social History Does the pt smoke?: No Smoking Status: Never smoker Does the pt drink ETOH?: Yes Does the pt have substance abuse?: No PD ED PE NORMAL - Vitals Vital signs reviewed: Yes - General General: Alert and oriented X 3, No acute distress, Well developed/nourished - HEENT HEENT: Atraumatic, PERRL, EOMI - Derm Derm: Normal color, Warm and dry, Other (thickening of toenails with nailbed discoloration to R first and second toe. erythema to R foot, concentrating at R first and second toe. ) - Extremities Extremities: No deformity, Normal ROM s pain, Other (2+ BL dp/pt pulses.) - Neuro Neuro: Alert and oriented X 3, No motor deficit, No sensory deficit Results - Vitals Vitals: Vital Signs - 24 hr 12/14/20 12/14/20 10:39 14:32 Temperature 36.6 C 37.1 C Heart Rate 87 88 Respiratory 18 12 Rate Blood Pressure 136/85 H 114/73 O2 Saturation 95 94 Oxygen O2 Source [With Activity] Nasal cannula O2 Source [Without Activity] Nasal cannula O2 Source Room air - Labs Labs: Laboratory Tests 12/14/20 12/14/20 12/14/20 14:00 14:00 14:00 WBC 8.6 RBC 5.32 Hgb 15.5 Hct 48.3 MCV 90.8 MCH 29.1 MCHC 32.1 RDW 13.5 Plt Count 257 MPV 9.2 Neut # (Auto) 6.3 Lymph # (Auto) 1.5 Jerauld # (Auto) 0.6 Eos # (Auto) 0.2 Baso # (Auto) 0.1 Absolute Nucleated RBC 0.00 Nucleated RBC % 0.0 Sodium 143 Potassium 4.5 Chloride 106 Carbon Dioxide 26 Anion Gap 11.0 BUN 40 H Creatinine 1.3 H Estimated GFR (MDRD) 53 L Glucose 111 H Lactic Acid 1.1 Calcium 9.9 Total Bilirubin 1.6 H AST 20 ALT 27 Alkaline Phosphatase 58 Total Protein 7.5 Albumin 4.5 Globulin 3.0 Albumin/Globulin Ratio 1.5 Nasal Adenovirus (PCR) Nasal B. parapertussis DNA (PCR) Nasal Coronavir 229E PCR Nasal Coronavir HKU1 PCR Nasal Coronavir NL63 PCR Nasal Coronavir OC43 PCR Nasal Enterovir/Rhinovir PCR Nasal Influenza B PCR Nasal Influenza A PCR Nasal Parainfluen 1 PCR Nasal Parainfluen 2 PCR Nasal Parainfluen 3 PCR Nasal Parainfluen 4 PCR Nasal RSV (PCR) Nasal B.pertussis DNA PCR Nasal C.pneumoniae (PCR) Sergio Human Metapneumo PCR Nasal M.pneumoniae (PCR) Nasal SARS-CoV-2 (PCR) 12/14/20 14:00 WBC RBC Hgb Hct MCV MCH MCHC RDW Plt Count MPV Neut # (Auto) Lymph # (Auto) Jerauld # (Auto) Eos # (Auto) Baso # (Auto) Absolute Nucleated RBC Nucleated RBC % Sodium Potassium Chloride Carbon Dioxide Anion Gap BUN Creatinine Estimated GFR (MDRD) Glucose Lactic Acid Calcium Total Bilirubin AST ALT Alkaline Phosphatase Total Protein Albumin Globulin Albumin/Globulin Ratio Nasal Adenovirus (PCR) NOT DETECTED Nasal B. parapertussis DNA (PCR) NOT DETECTED Nasal Coronavir 229E PCR NOT DETECTED Nasal Coronavir HKU1 PCR NOT DETECTED Nasal Coronavir NL63 PCR NOT DETECTED Nasal Coronavir OC43 PCR NOT DETECTED Nasal Enterovir/Rhinovir PCR NOT DETECTED Nasal Influenza B PCR NOT DETECTED Nasal Influenza A PCR NOT DETECTED Nasal Parainfluen 1 PCR NOT DETECTED Nasal Parainfluen 2 PCR NOT DETECTED Nasal Parainfluen 3 PCR NOT DETECTED Nasal Parainfluen 4 PCR NOT DETECTED Nasal RSV (PCR) NOT DETECTED Nasal B.pertussis DNA PCR NOT DETECTED Nasal C.pneumoniae (PCR) NOT DETECTED Sergio Human Metapneumo PCR NOT DETECTED Nasal M.pneumoniae (PCR) NOT DETECTED Nasal SARS-CoV-2 (PCR) NOT DETECTED PD MEDICAL DECISION MAKING - ED course ED course: d/w Dr. Guardado, accepting hospitalist at [facility]. patient amenable to transfer. Departure - Departure Disposition: 02 Transfer Acute Care Hosp Clinical Impression: Osteomyelitis, Toe infection
[2020-12-14 14:22] LABS: BASOPHILS # (AUTO) 0.1 10^3/uL (0.0-0.1); BASOPHILS % (AUTO) 0.6 %; EOSINOPHILS # (AUTO) 0.2 10^3/uL (0.0-0.7); EOSINOPHILS % (AUTO) 2.4 %; HCT - HEMATOCRIT 48.3 % (42.0-52.0); HGB - HEMOGLOBIN 15.5 g/dL (14.0-18.0); LYMPHOCYTES # (AUTO) 1.5 10^3/uL (1.5-3.5); LYMPHOCYTES % (AUTO) 17.2 %; MEAN CORPUSCULAR HEMOGLOBIN 29.1 pg (27.0-31.0); MEAN CORPUSCULAR HGB CONC 32.1 g/dL (32.0-36.0); MEAN CORPUSCULAR VOLUME 90.8 fL (80.0-94.0); MEAN PLATELET VOLUME 9.2 fL (7.4-11.4); MONOCYTES # (AUTO) 0.6 10^3/uL (0.0-1.0); MONOCYTES % (AUTO) 6.4 %; NEUTROPHILS # (AUTO) 6.3 10^3/uL (1.5-6.6); NEUTROPHILS % (AUTO) 73.1 %; PLT - PLATELET COUNT 257 10^3/uL (130-450); RED BLOOD COUNT 5.32 10^6/uL (4.70-6.10); RED CELL DISTRIBUTION WIDTH 13.5 % (12.0-15.0); WHITE BLOOD COUNT 8.6 x10^3/uL (4.8-10.8)
[2020-12-14 14:33] VITALS: BP 114/73
[2020-12-14 14:33] LABS: ALBUMIN 4.5 g/dL (3.2-5.5); ALBUMIN/GLOBULIN RATIO 1.5 (1.0-2.2); BILIRUBIN,TOTAL 1.6 mg/dL (0.2-1.0); CALCIUM 9.9 mg/dL (8.5-10.3); CREATININE 1.3 mg/dL (0.6-1.2); POTASSIUM 4.5 mmol/L (3.5-5.0); TOTAL PROTEIN 7.5 g/dL (6.7-8.2)
[2020-12-14 15:06] LABS: B. PARAPERTUSSIS- RESP PCR PAN NOT DETECTED; B. PERTUSSIS- RESP PCR PANEL NOT DETECTED; C. PNEUMONIAE- RESP PCR PANEL NOT DETECTED; CORONAVIRUS 229E-RESP PCR NOT DETECTED; CORONAVIRUS HKU1-RESP PCR NOT DETECTED; CORONAVIRUS NL63-RESP PCR NOT DETECTED; CORONAVIRUS OC43-RESP PCR NOT DETECTED; HUMAN METAPNEUMOVIRUS NOT DETECTED; INFLUENZA A- RESP PCR PANEL NOT DETECTED; INFLUENZA B - RESP PCR PANEL NOT DETECTED; M. PNEUMONIAE- RESP PCR PANEL NOT DETECTED; PARAINFLUENZA VIRUS 1 NOT DETECTED; PARAINFLUENZA VIRUS 2 NOT DETECTED; PARAINFLUENZA VIRUS 3 NOT DETECTED; PARAINFLUENZA VIRUS 4 NOT DETECTED; RHINOVIRUS/ENTEROVIRUS NOT DETECTED; RSV- RESP PCR PANEL NOT DETECTED; SARS-CoV-2 -RESP PCR PANEL NOT DETECTED
[2020-12-14] MEDS ORDERED: VANCOMYCIN 1 GM VIAL ONE (15:53)
== END 2020-12-14 16:10 | disposition short-term general hospital (02) ==
LOC: ED 10:29
DX: M86.8X7 Other osteomyelitis, ankle and foot (principal); L08.9 Local infection of the skin and subcutaneous tissue, unspecified; M79.674 Pain in right toe(s); I10 Essential (primary) hypertension; Z20.822 Contact with and (suspected) exposure to COVID-19
CPT/HCPCS: 36415; 73660; 80053; 83605; 85025; 87040; 87631; 96365; 96375; 96376; 99284; 99285; J3370; 0202U

== ENCOUNTER 2020-12-14 15:59 | Outpatient (CLI) | payer MEDICARE | END 2020-12-14 16:00 | disposition short-term general hospital (02) | LOC: EMS 15:59 | PROVIDERS: ATTEND Emergency Medicine | DX: M86.9 Osteomyelitis, unspecified (principal) | CPT/HCPCS: A0425; A0426 ==

== ENCOUNTER 2021-01-24 11:14 | Outpatient (CLI) | payer MEDICARE ==
[2021-01-24 11:31] LABS: BASOPHILS % (AUTO) 0.5 %; EOSINOPHILS # (AUTO) 0.2 10^3/uL (0.0-0.7); HGB - HEMOGLOBIN 15.3 g/dL (14.0-18.0); LYMPHOCYTES # (AUTO) 1.4 10^3/uL (1.5-3.5); LYMPHOCYTES % (AUTO) 16.1 %; MEAN CORPUSCULAR HEMOGLOBIN 28.9 pg (27.0-31.0); MEAN CORPUSCULAR HGB CONC 32.6 g/dL (32.0-36.0); MEAN CORPUSCULAR VOLUME 88.7 fL (80.0-94.0); MEAN PLATELET VOLUME 8.7 fL (7.4-11.4); MONOCYTES # (AUTO) 0.5 10^3/uL (0.0-1.0); MONOCYTES % (AUTO) 5.8 %; NEUTROPHILS # (AUTO) 6.5 10^3/uL (1.5-6.6); NEUTROPHILS % (AUTO) 75.4 %; PLT - PLATELET COUNT 248 10^3/uL (130-450); RED CELL DISTRIBUTION WIDTH 13.4 % (12.0-15.0); WHITE BLOOD COUNT 8.6 x10^3/uL (4.8-10.8)
[2021-01-24 11:49] LABS: BUN - BLOOD UREA NITROGEN 26 mg/dL (6-20); CALCIUM 9.7 mg/dL (8.5-10.3); CARBON DIOXIDE - CO2 25 mmol/L (21-32); CHLORIDE 100 mmol/L (101-111); CHOL/HDL RATIO 3.9 (<5.0); CHOLESTEROL 166 mg/dL; CREATININE 1.1 mg/dL (0.6-1.2); GFR - MDRD 64 (>89); GLUCOSE 103 mg/dL (70-100); HDL CHOLESTEROL 43 mg/dL; LDL CHOLESTEROL,CALCULATED 89 mg/dL; LDL/HDL RATIO 2.1 (<3.6); POTASSIUM 4.5 mmol/L (3.5-5.0); SODIUM 139 mmol/L (135-145); TRIGLYCERIDES 170 mg/dL; URIC ACID 7.5 mg/dL (2.6-7.2); VLDL CHOLESTEROL 34 mg/dL
[2021-01-24 11:53] LABS: CRP - C-REACTIVE PROTEIN < 1.0 mg/dL (0-1.0)
[2021-01-24 11:55] LABS: ESTIMATED AVERAGE GLUCOSE 117 mg/dL (70-100); HEMOGLOBIN A1c% 5.7 % (4.27-6.07)
== END 2021-01-24 11:15 | disposition home or self-care (01) ==
LOC: LAB 11:14
PROVIDERS: ATTEND Family Medicine
DX: M10.9 Gout, unspecified (principal); E78.5 Hyperlipidemia, unspecified; R73.9 Hyperglycemia, unspecified
CPT/HCPCS: 36415; 80048; 80061; 83036; 83721; 84550; 85025; 85651; 86140

== ENCOUNTER 2021-04-29 12:03 | Outpatient (CLI) | payer MEDICARE ==
[2021-04-29 12:40] LABS: BASOPHILS # (AUTO) 0.1 10^3/uL (0.0-0.1); BASOPHILS % (AUTO) 0.7 %; EOSINOPHILS # (AUTO) 0.1 10^3/uL (0.0-0.7); EOSINOPHILS % (AUTO) 1.2 %; HCT - HEMATOCRIT 46.6 % (42.0-52.0); HGB - HEMOGLOBIN 15.1 g/dL (14.0-18.0); LYMPHOCYTES # (AUTO) 1.2 10^3/uL (1.5-3.5); LYMPHOCYTES % (AUTO) 14.7 %; MEAN CORPUSCULAR HEMOGLOBIN 29.2 pg (27.0-31.0); MEAN CORPUSCULAR HGB CONC 32.4 g/dL (32.0-36.0); MONOCYTES # (AUTO) 0.6 10^3/uL (0.0-1.0); MONOCYTES % (AUTO) 6.7 %; NEUTROPHILS # (AUTO) 6.3 10^3/uL (1.5-6.6); NEUTROPHILS % (AUTO) 76.3 %; PLT - PLATELET COUNT 260 10^3/uL (130-450); RED BLOOD COUNT 5.18 10^6/uL (4.70-6.10); RED CELL DISTRIBUTION WIDTH 13.5 % (12.0-15.0); WHITE BLOOD COUNT 8.3 x10^3/uL (4.8-10.8)
[2021-04-29 13:03] LABS: ALBUMIN 4.4 g/dL (3.2-5.5); ALBUMIN/GLOBULIN RATIO 1.4 (1.0-2.2); BILIRUBIN,TOTAL 1.4 mg/dL (0.2-1.0); CALCIUM 9.8 mg/dL (8.5-10.3); CREATININE 1.8 mg/dL (0.6-1.2); POTASSIUM 4.6 mmol/L (3.5-5.0); TOTAL PROTEIN 7.5 g/dL (6.7-8.2)
[2021-04-29 13:11] LABS: THYROID STIMULATING HORMONE 1.54 uIU/mL (0.34-5.60)
[2021-04-29 13:24] LABS: ESTIMATED AVERAGE GLUCOSE 117 mg/dL (70-100); HEMOGLOBIN A1c% 5.7 % (4.27-6.07)
== END 2021-04-29 12:04 | disposition home or self-care (01) ==
LOC: LAB 12:03
PROVIDERS: ATTEND Family Medicine
DX: M10.9 Gout, unspecified (principal); L12.0 Bullous pemphigoid; F31.9 Bipolar disorder, unspecified; G47.30 Sleep apnea, unspecified; I10 Essential (primary) hypertension; J44.9 Chronic obstructive pulmonary disease, unspecified; Z12.5 Encounter for screening for malignant neoplasm of prostate
CPT/HCPCS: 36415; 80053; 83036; 84443; 85025; G0103; 84153

== ENCOUNTER 2021-08-05 12:20 | Outpatient (CLI) | payer MEDICARE ==
[2021-08-05 12:43] LABS: BASOPHILS # (AUTO) 0.1 10^3/uL (0.0-0.1); BASOPHILS % (AUTO) 0.7 %; EOSINOPHILS # (AUTO) 0.2 10^3/uL (0.0-0.7); EOSINOPHILS % (AUTO) 2.1 %; HCT - HEMATOCRIT 44.4 % (42.0-52.0); HGB - HEMOGLOBIN 14.6 g/dL (14.0-18.0); LYMPHOCYTES # (AUTO) 1.2 10^3/uL (1.5-3.5); LYMPHOCYTES % (AUTO) 16.3 %; MEAN CORPUSCULAR HEMOGLOBIN 29.5 pg (27.0-31.0); MEAN CORPUSCULAR HGB CONC 32.9 g/dL (32.0-36.0); MEAN CORPUSCULAR VOLUME 89.7 fL (80.0-94.0); MEAN PLATELET VOLUME 8.8 fL (7.4-11.4); MONOCYTES # (AUTO) 0.6 10^3/uL (0.0-1.0); MONOCYTES % (AUTO) 7.3 %; NEUTROPHILS # (AUTO) 5.6 10^3/uL (1.5-6.6); NEUTROPHILS % (AUTO) 73.3 %; PLT - PLATELET COUNT 208 10^3/uL (130-450); RED BLOOD COUNT 4.95 10^6/uL (4.70-6.10); RED CELL DISTRIBUTION WIDTH 13.8 % (12.0-15.0); WHITE BLOOD COUNT 7.6 x10^3/uL (4.8-10.8)
[2021-08-05 13:03] LABS: ALBUMIN 4.3 g/dL (3.2-5.5); ALBUMIN/GLOBULIN RATIO 1.3 (1.0-2.2); ALKALINE PHOSPHATASE 53 IU/L (42-121); ALT ALANINE AMINOTRANSFERASE 20 IU/L (10-60); AST ASPARTATE AMINOTRANSFERASE 22 IU/L (10-42); BILIRUBIN,TOTAL 2.6 mg/dL (0.2-1.0); BUN - BLOOD UREA NITROGEN 36 mg/dL (6-20); CARBON DIOXIDE - CO2 27 mmol/L (21-32); CHLORIDE 100 mmol/L (101-111); CHOL/HDL RATIO 2.9 (<5.0); CHOLESTEROL 143 mg/dL; CREATININE 1.4 mg/dL (0.6-1.2); CRP - C-REACTIVE PROTEIN 2.3 mg/dL (0-1.0); GFR - MDRD 48 (>89); GLUCOSE 102 mg/dL (70-100); HDL CHOLESTEROL 49 mg/dL; LDL CHOLESTEROL,CALCULATED 72 mg/dL; LDL/HDL RATIO 1.5 (<3.6); MAGNESIUM 2.3 mg/dL (1.7-2.8); PHOSPHORUS 3.5 mg/dL (2.5-4.6); POTASSIUM 4.8 mmol/L (3.5-5.0); SODIUM 138 mmol/L (135-145); TOTAL PROTEIN 7.5 g/dL (6.7-8.2); TRIGLYCERIDES 108 mg/dL; URIC ACID 7.9 mg/dL (2.6-7.2); VLDL CHOLESTEROL 22 mg/dL
[2021-08-05 13:04] LABS: ESTIMATED AVERAGE GLUCOSE 117 mg/dL (70-100); HEMOGLOBIN A1c% 5.7 % (4.27-6.07)
== END 2021-08-05 12:21 | disposition home or self-care (01) ==
LOC: LAB 12:20
PROVIDERS: ATTEND Family Medicine
DX: R97.20 Elevated prostate specific antigen [PSA] (principal); R63.4 Abnormal weight loss; M10.9 Gout, unspecified; F31.9 Bipolar disorder, unspecified; F90.0 Attention-deficit hyperactivity disorder, predominantly inattentive type; I10 Essential (primary) hypertension; J44.9 Chronic obstructive pulmonary disease, unspecified; E78.5 Hyperlipidemia, unspecified
CPT/HCPCS: 36415; 80053; 80061; 83036; 83721; 83735; 84100; 84153; 84550; 85025; 85651; 86140

== ENCOUNTER 2021-09-09 14:31 | Outpatient (CLI) | payer MEDICARE | END 2021-09-09 14:32 | disposition home or self-care (01) | LOC: LAB 14:31 | PROVIDERS: ATTEND Specialist | DX: R97.20 Elevated prostate specific antigen [PSA] (principal) | CPT/HCPCS: 36415; 84153 ==

== ENCOUNTER 2021-10-29 09:22 | Outpatient (CLI) | payer MEDICARE ==
--- NOTE | 2021-10-29 15:35 | Nuclear Medicine Report ---
PROCEDURE: Bone Whole Body INDICATIONS: PROSTATE CANCER RADIOPHARMACEUTICAL: 25.6 mCi Tc-99m MDP IV. TECHNIQUE: Delayed whole-body scintigrams were obtained approximately 3-4 hours after intravenous injection of r adiotracer. Anterior and posterior views were acquired from vertex to feet. Additional left and rig ht oblique views of the cervical spine were obtained. COMPARISON: Chest x-ray 08/24/2017 FINDINGS: Physiologic uptake is noted within the kidneys and bladder. Increased uptake is noted with in the shoulders as well as small bones of the hand and feet suggestive of degenerative change. Photo penia is noted within the kidneys suggestive of arthroplasty. Areas of increased uptake are noted at multilevels throughout the spine. IMPRESSION: Multilevel areas of uptake within the spine overall nonspecific and with a general appearance of dege nerative change. However, continued interval follow-up is recommended given history of prostate cance r. Degenerative changes within the shoulders, hands and feet. Reviewed by: Mayi Martines MD on 10/29/2021 3:34 PM PST Approved by: Mayi Martines MD on 10/29/2021 3:34 PM PST Station ID: [id number]
== END 2021-10-29 09:23 | disposition home or self-care (01) ==
LOC: DI 09:22
PROVIDERS: ATTEND Specialist
DX: C61 Malignant neoplasm of prostate (principal); N40.1 Benign prostatic hyperplasia with lower urinary tract symptoms; N13.8 Other obstructive and reflux uropathy; R93.7 Abnormal findings on diagnostic imaging of other parts of musculoskeletal system
CPT/HCPCS: 78306

== ENCOUNTER 2021-11-13 14:06 | Outpatient (CLI) | payer MEDICARE ==
[2021-11-13 15:35] LABS: BILIRUBIN,URINE NEGATIVE (NEGATIVE); GLUCOSE, URINE (UA) NEGATIVE (NEGATIVE); KETONES,URINE (UA) NEGATIVE (NEGATIVE); LEUKOCYTE ESTERASE, URINE NEGATIVE (NEGATIVE); NITRITE,URINE NEGATIVE (NEGATIVE); OCCULT BLOOD,URINE NEGATIVE (NEGATIVE); PROTEIN,URINE NEGATIVE (NEGATIVE); UROBILINOGEN,URINE 0.2 (NORMAL) E.U./dL (NORMAL)
[2021-11-13 15:36] LABS: CLARITY,URINE CLEAR (CLEAR)
[2021-11-13 16:16] LABS: BACTERIA,URINE Few /HPF (None Seen); RBC,URINE 0-5 /HPF (0-5); SQUAMOUS EPITHELIAL CELL,UR FEW Squamous (<= Few); WBC,URINE 0-3 /HPF (0-3)
[2021-11-13 16:17] LABS: CASTS, URINE 0-2 Hyaline Casts /LPF
== END 2021-11-13 14:07 | disposition home or self-care (01) ==
LOC: LAB 14:06
PROVIDERS: ATTEND Specialist
DX: R30.0 Dysuria (principal)
CPT/HCPCS: 81001

== ENCOUNTER 2021-11-30 20:49 | Outpatient (CLI) | payer MEDICARE | END 2021-11-30 20:50 | disposition other institution (70) | LOC: EMS 20:49 | DX: R41.82 Altered mental status, unspecified (principal); S09.93XA Unspecified injury of face, initial encounter; W10.9XXA Fall (on) (from) unspecified stairs and steps, initial encounter; Y92.008 Other place in unspecified non-institutional (private) residence as the place of occurrence of the external cause | CPT/HCPCS: A0425; A0429 ==

== ENCOUNTER 2022-03-02 12:28 | Outpatient (CLI) | payer MEDICARE ==
[2022-03-02 12:50] LABS: BASOPHILS % (AUTO) 0.4 %; EOSINOPHILS # (AUTO) 0.1 10^3/uL (0.0-0.7); EOSINOPHILS % (AUTO) 1.3 %; HGB - HEMOGLOBIN 14.9 g/dL (14.0-18.0); LYMPHOCYTES # (AUTO) 1.3 10^3/uL (1.5-3.5); MEAN CORPUSCULAR HEMOGLOBIN 27.9 pg (27.0-31.0); MEAN CORPUSCULAR HGB CONC 32.4 g/dL (32.0-36.0); MEAN PLATELET VOLUME 9.3 fL (7.4-11.4); MONOCYTES # (AUTO) 0.5 10^3/uL (0.0-1.0); MONOCYTES % (AUTO) 6.5 %; NEUTROPHILS # (AUTO) 5.5 10^3/uL (1.5-6.6); NEUTROPHILS % (AUTO) 73.5 %; PLT - PLATELET COUNT 222 10^3/uL (130-450); RED BLOOD COUNT 5.35 10^6/uL (4.70-6.10); RED CELL DISTRIBUTION WIDTH 13.8 % (12.0-15.0); WHITE BLOOD COUNT 7.4 x10^3/uL (4.8-10.8)
[2022-03-02 13:05] LABS: ALBUMIN 4.4 g/dL (3.2-5.5); ALBUMIN/GLOBULIN RATIO 1.5 (1.0-2.2); ALKALINE PHOSPHATASE 62 IU/L (42-121); ALT ALANINE AMINOTRANSFERASE 18 IU/L (10-60); AST ASPARTATE AMINOTRANSFERASE 20 IU/L (10-42); BUN - BLOOD UREA NITROGEN 30 mg/dL (6-20); CALCIUM 10.1 mg/dL (8.5-10.3); CARBON DIOXIDE - CO2 28 mmol/L (21-32); CHLORIDE 101 mmol/L (101-111); CHOLESTEROL 136 mg/dL; CREATININE 1.3 mg/dL (0.6-1.2); GFR - MDRD 52 (>89); GLUCOSE 108 mg/dL (70-100); HDL CHOLESTEROL 46 mg/dL; LDL CHOLESTEROL,CALCULATED 63 mg/dL; POTASSIUM 4.7 mmol/L (3.5-5.0); SODIUM 137 mmol/L (135-145); TOTAL PROTEIN 7.3 g/dL (6.7-8.2); TRIGLYCERIDES 135 mg/dL; URIC ACID 7.3 mg/dL (2.6-7.2); VLDL CHOLESTEROL 27 mg/dL
[2022-03-02 13:06] LABS: LDL/HDL RATIO 1.4 (<3.6)
[2022-03-02 13:18] LABS: THYROID STIMULATING HORMONE 2.1 uIU/mL (0.34-5.60)
== END 2022-03-02 12:29 | disposition home or self-care (01) ==
LOC: LAB 12:28
PROVIDERS: ATTEND Family Medicine
DX: I10 Essential (primary) hypertension (principal); N17.9 Acute kidney failure, unspecified; M10.9 Gout, unspecified; F30.8 Other manic episodes; F90.9 Attention-deficit hyperactivity disorder, unspecified type; E80.6 Other disorders of bilirubin metabolism; J44.9 Chronic obstructive pulmonary disease, unspecified
CPT/HCPCS: 36415; 80053; 80061; 83721; 84443; 84550; 85025

== ENCOUNTER 2022-04-23 23:33 | Outpatient (CLI) | payer MEDICARE | END 2022-04-23 23:34 | disposition EMS.NT | LOC: EMS 23:33 | DX: Z03.89 Encounter for observation for other suspected diseases and conditions ruled out (principal) ==

== ENCOUNTER 2022-06-01 11:21 | Outpatient (CLI) | payer MEDICARE ==
[2022-06-01 11:36] LABS: BASOPHILS % (AUTO) 0.7 %; EOSINOPHILS # (AUTO) 0.2 10^3/uL (0.0-0.7); EOSINOPHILS % (AUTO) 3.7 %; HCT - HEMATOCRIT 41.2 % (42.0-52.0); HGB - HEMOGLOBIN 13.4 g/dL (14.0-18.0); LYMPHOCYTES # (AUTO) 0.7 10^3/uL (1.5-3.5); LYMPHOCYTES % (AUTO) 11.5 %; MEAN CORPUSCULAR HEMOGLOBIN 29.3 pg (27.0-31.0); MEAN CORPUSCULAR HGB CONC 32.5 g/dL (32.0-36.0); MEAN PLATELET VOLUME 9.1 fL (7.4-11.4); MONOCYTES # (AUTO) 0.4 10^3/uL (0.0-1.0); MONOCYTES % (AUTO) 6.2 %; NEUTROPHILS # (AUTO) 4.6 10^3/uL (1.5-6.6); NEUTROPHILS % (AUTO) 77.6 %; PLT - PLATELET COUNT 205 10^3/uL (130-450); RED BLOOD COUNT 4.58 10^6/uL (4.70-6.10); RED CELL DISTRIBUTION WIDTH 14.5 % (12.0-15.0)
[2022-06-01 11:42] LABS: BILIRUBIN,URINE NEGATIVE (NEGATIVE); GLUCOSE, URINE (UA) NEGATIVE (NEGATIVE); KETONES,URINE (UA) NEGATIVE (NEGATIVE); LEUKOCYTE ESTERASE, URINE TRACE (NEGATIVE); NITRITE,URINE NEGATIVE (NEGATIVE); OCCULT BLOOD,URINE MODERATE (NEGATIVE); PROTEIN,URINE TRACE mg/dL (NEGATIVE); UROBILINOGEN,URINE 0.2 (NORMAL) E.U./dL (NORMAL)
[2022-06-01 11:55] LABS: ALBUMIN 4.2 g/dL (3.2-5.5); ALBUMIN/GLOBULIN RATIO 1.4 (1.0-2.2); BILIRUBIN,TOTAL 1.6 mg/dL (0.2-1.0); CALCIUM 9.3 mg/dL (8.5-10.3); CREATININE 1.3 mg/dL (0.6-1.2); POTASSIUM 4.2 mmol/L (3.5-5.0); TOTAL PROTEIN 7.2 g/dL (6.7-8.2)
[2022-06-01 11:57] LABS: BACTERIA,URINE Few /HPF (None Seen); CASTS, URINE 0-2 Course Granular /LPF; CLARITY,URINE CLEAR (CLEAR); RBC,URINE 0-5 /HPF (0-5); SQUAMOUS EPITHELIAL CELL,UR FEW Squamous (<= Few); WBC,URINE 0-3 /HPF (0-3)
[2022-06-01 12:07] LABS: THYROID STIMULATING HORMONE 1.82 uIU/mL (0.34-5.60)
[2022-06-01 12:32] LABS: ESTIMATED AVERAGE GLUCOSE 114 mg/dL (70-100); HEMOGLOBIN A1c% 5.6 % (4.27-6.07)
== END 2022-06-01 11:22 | disposition home or self-care (01) ==
LOC: LAB 11:21
PROVIDERS: ATTEND Family Medicine
DX: I10 Essential (primary) hypertension (principal); C61 Malignant neoplasm of prostate; M10.9 Gout, unspecified; R73.9 Hyperglycemia, unspecified; F31.9 Bipolar disorder, unspecified; F90.9 Attention-deficit hyperactivity disorder, unspecified type; J44.9 Chronic obstructive pulmonary disease, unspecified; R31.9 Hematuria, unspecified
CPT/HCPCS: 36415; 80053; 81001; 83036; 84153; 84443; 85025

== ENCOUNTER 2022-07-20 14:22 | Outpatient (CLI) | payer MEDICARE | END 2022-07-20 14:23 | disposition home or self-care (01) | LOC: LAB 14:22 | PROVIDERS: ATTEND Specialist | DX: R97.20 Elevated prostate specific antigen [PSA] (principal) | CPT/HCPCS: 36415; 84153 ==

== ENCOUNTER 2022-12-09 15:54 | Outpatient (CLI) | payer MEDICARE ==
[2022-12-09 16:23] LABS: BASOPHILS % (AUTO) 0.5 %; EOSINOPHILS # (AUTO) 0.1 10^3/uL (0.0-0.7); EOSINOPHILS % (AUTO) 1.8 %; HCT - HEMATOCRIT 42.5 % (42.0-52.0); HGB - HEMOGLOBIN 13.8 g/dL (14.0-18.0); LYMPHOCYTES # (AUTO) 1.1 10^3/uL (1.5-3.5); MEAN CORPUSCULAR HEMOGLOBIN 28.2 pg (27.0-31.0); MEAN CORPUSCULAR HGB CONC 32.5 g/dL (32.0-36.0); MEAN CORPUSCULAR VOLUME 86.9 fL (80.0-94.0); MEAN PLATELET VOLUME 9.4 fL (7.4-11.4); MONOCYTES # (AUTO) 0.6 10^3/uL (0.0-1.0); MONOCYTES % (AUTO) 7.7 %; NEUTROPHILS # (AUTO) 5.5 10^3/uL (1.5-6.6); NEUTROPHILS % (AUTO) 74.7 %; PLT - PLATELET COUNT 241 10^3/uL (130-450); RED BLOOD COUNT 4.89 10^6/uL (4.70-6.10); RED CELL DISTRIBUTION WIDTH 13.1 % (12.0-15.0); WHITE BLOOD COUNT 7.4 x10^3/uL (4.8-10.8)
[2022-12-09 16:35] LABS: CALCIUM 9.4 mg/dL (8.5-10.3); CREATININE 1.4 mg/dL (0.6-1.2); POTASSIUM 4.7 mmol/L (3.5-5.0)
[2022-12-09 20:35] LABS: ESTIMATED AVERAGE GLUCOSE 117 mg/dL (70-100); HEMOGLOBIN A1c% 5.7 % (4.27-6.07)
== END 2022-12-09 15:55 | disposition home or self-care (01) ==
LOC: LAB 15:54
PROVIDERS: ATTEND Family Medicine
DX: C61 Malignant neoplasm of prostate (principal); R73.9 Hyperglycemia, unspecified; F31.9 Bipolar disorder, unspecified; L73.9 Follicular disorder, unspecified; G47.30 Sleep apnea, unspecified
CPT/HCPCS: 36415; 80048; 83036; 85025

== ENCOUNTER 2023-01-14 14:39 | Outpatient (CLI) | payer MEDICARE | END 2023-01-14 14:40 | disposition home or self-care (01) | LOC: LAB 14:39 | PROVIDERS: ATTEND Specialist | DX: R97.20 Elevated prostate specific antigen [PSA] (principal) | CPT/HCPCS: 36415; 84153 ==

== ENCOUNTER 2023-02-22 12:18 | Outpatient (CLI) | payer MEDICARE ==
[2023-02-22 13:01] LABS: ALBUMIN 4.2 g/dL (3.2-5.5); BILIRUBIN,DIRECT 0.2 mg/dL (0.1-0.5); CREATININE 1.6 mg/dL (0.6-1.2); TOTAL PROTEIN 7.6 g/dL (6.7-8.2)
== END 2023-02-22 12:19 | disposition home or self-care (01) ==
LOC: LAB 12:18
PROVIDERS: ATTEND Radiology Radiation Oncology
DX: B35.1 Tinea unguium (principal); C61 Malignant neoplasm of prostate
CPT/HCPCS: 36415; 80076; 82565; 84153; 84520

== ENCOUNTER 2023-03-29 17:16 | Outpatient (CLI) | payer MEDICARE ==
[2023-03-29 17:45] LABS: ALBUMIN 4.5 g/dL (3.2-5.5); BILIRUBIN,DIRECT 0.14 mg/dL (0.03-0.18); BILIRUBIN,TOTAL 0.7 mg/dL (0.2-1.0); CREATININE 1.6 mg/dL (0.6-1.3); TOTAL PROTEIN 7.4 g/dL (6.4-8.9)
== END 2023-03-29 17:17 | disposition home or self-care (01) ==
LOC: LAB 17:16
PROVIDERS: ATTEND Physician Assistant Medical
DX: B35.1 Tinea unguium (principal)
CPT/HCPCS: 36415; 80076; 82565; 84520

== ENCOUNTER 2023-08-28 16:35 | Outpatient (CLI) | payer MEDICARE ==
[2023-08-28 17:28] LABS: ALBUMIN 4.4 g/dL (3.2-5.5); BILIRUBIN,DIRECT 0.11 mg/dL (0.03-0.18); BILIRUBIN,TOTAL 0.7 mg/dL (0.2-1.0); CREATININE 1.7 mg/dL (0.6-1.3); TOTAL PROTEIN 7.1 g/dL (6.4-8.9)
== END 2023-08-28 16:36 | disposition home or self-care (01) ==
LOC: LAB 16:35
PROVIDERS: ATTEND Specialist
DX: R97.20 Elevated prostate specific antigen [PSA] (principal); Z85.46 Personal history of malignant neoplasm of prostate; B35.1 Tinea unguium
CPT/HCPCS: 36415; 80076; 82565; 84153; 84520

== ENCOUNTER 2023-10-08 08:29 | Day surgery (SDC) | payer MEDICARE ==
[2023-10-08] MEDS: LACTATED RINGERS 1,000 ML IV ONE ×2 (08:41→09:59)
--- NOTE | 2023-10-08 09:26 | HISTORY & PHYSICAL EXAMINATION ---
Chief Complaint - Chief Complaint Chief Complaint: here for colonoscopy History of Present Illness - History Obtained From Records Reviewed: yes History obtained from: pt Exam Limitations: none - History of Present Illness HPI Comment/Other: here for colonoscopy. history colon polyps History - Past Medical History Cardiovascular: reports: Hypertension, High cholesterol Respiratory: reports: COPD, Emphysema Endocrine/Autoimmune: reports: None GI: reports: GERD, Colon polyps, Hemorrhoids, Hepatitis : reports: None HEENT: reports: None Psych: reports: Depression, ADD/ADHD Musculoskeletal: reports: None Derm: reports: None, Other MRSA Hx?: No - Past Surgical History General: reports: Colonoscopy, Other Ortho: reports: Knee replacement HEENT: reports: Cataracts Meds/Allgy - Home Medications Home Medications: Ambulatory Orders Medication Instructions Recorded Confirmed Escitalopram Oxalate [Lexapro] 20 mg PO DAILY 09/19/13 10/07/23 Methylphenidate HCl [Ritalin] 80 mg PO DAILY 09/19/13 10/07/23 Metoprolol Tartrate [Lopressor] 25 mg PO BID 09/19/13 10/07/23 Rosuvastatin Calcium [Crestor] 40 mg PO HS 10/07/23 10/07/23 - Allergies Allergies/Adverse Reactions: Allergies Allergy/AdvReac Type Severity Reaction Status Date / Time No Known Drug Allergies Allergy Verified 11/21/20 13:29 Review of Systems - Other Findings Other Findings: 10 pt ros as above otherwise unremarkable Exam - Vital Signs Vital Signs: Vital Signs x48h Temp Pulse Resp BP Pulse Ox 10/08/23 08:42 36.5 C 88 16 124/86 H 93 - Physical Exam General Appearance: positive: No acute distress, Alert Eyes Bilateral: positive: Normal inspection, EOMI ENT: positive: No signs of dehydration Neck: positive: No JVD Respiratory: positive: No respiratory distress Cardiovascular: positive: Regular rate & rhythm Abdomen: positive: Non-tender, No distention Neurologic/Psychiatric: positive: Oriented x3 Conclusion/Plan - Problem List (1) Colon cancer screening Conclusion/Plan: plan colonoscopy. parq held and consent obtained
[2023-10-08] MEDS: SIMETHICONE 40 MG/0.6 ML 15 ML BOTTLE PO ONE (09:42)
[2023-10-08] MEDS ORDERED: PROPOFOL 500 MG/50 ML 500 MG/50 ML VIAL ONE (09:56)
--- NOTE | 2023-10-08 10:21 | ANESTHESIA ---
Pre-Anesthesia VS, & Labs - Diagnosis history of colon polyps, screening exam - Procedure colonoscopy Vital Signs: Temp Pulse Resp BP Pulse Ox O2 Flow Rate 37.2 C 74 16 119/69 92 10/08/23 10:05 10/08/23 10:05 10/08/23 10:05 10/08/23 10:05 10/08/23 10:05 Height: 5 ft 10 in Weight (kg): 109.9 kg Body Mass Index: 34.7 BMI Classification: Obese - NPO >8 hours Home Medications and Allergies Home Medications: Ambulatory Orders Rosuvastatin Calcium [Crestor] 40 mg PO HS 10/07/23 Escitalopram Oxalate [Lexapro] 20 mg PO DAILY 09/19/13 Methylphenidate HCl [Ritalin] 80 mg PO DAILY 09/19/13 Metoprolol Tartrate [Lopressor] 25 mg PO BID 09/19/13 Rosuvastatin Calcium [Crestor] 40 mg PO HS 10/07/23 Allergies/Adverse Reactions: Allergies Allergy/AdvReac Type Severity Reaction Status Date / Time No Known Drug Allergies Allergy Verified 11/21/20 13:29 Anes History & Medical History - Anesthetic History Anesthesia Complications: reports: No previous complications - Medical History Cardiovascular: reports: Hypertension, High cholesterol Pulmonary: reports: COPD, Emphysema, Sleep apnea (does not use cpap) Gastrointestinal: reports: GERD, Colon polyps, Hemorrhoids, Hepatitis Urinary: reports: None Musculoskeletal: reports: None Endocrine/Autoimmune: reports: None Blood Disorders: reports: None Skin: reports: None, Other Smoking Status: Never smoker Psychosocial: reports: No issues indicated History of Cancer?: No - Surgical History General: reports: Colonoscopy, Other Eyes Ears Nose Throat (EENT): reports: Cataracts Orthopedic: reports: Knee replacement Exam General: Alert, Oriented x3, Cooperative, No acute distress Dental: WNL Mouth Openin Fingerbreadth Neck Mobility: Normal Mallampati classification: II Thyromental Distance: 4-6 cm Mental/Cognitive Status: Alert/Oriented X3, Normal for patient Plan Anesthesia Type: General, Total IV Consent for Procedure(s) Verified and Reviewed: Yes Code Status: Attempt Resuscitation ASA classification: 3-Severe systemic disease Is this case an emergency?: No
--- NOTE | 2023-10-08 10:22 | ANESTHESIA POST OP EVALUATION ---
Anesthesia Post Eval - Post Anesthesia Eval Vitals: Last Vital Signs Temp 37.2 C 10/08/23 10:05 Pulse 74 10/08/23 10:05 Resp 16 10/08/23 10:05 BP 119/69 10/08/23 10:05 Pulse Ox 92 10/08/23 10:05 O2 Flow Rate CV Function Including HR & BP: Stable Pain Control: Satisfactory Nausea & Vomiting: Negative Mental Status: Baseline Respiratory Status: Airway Patent Hydration Status: Satisfactory Anesthesia Complications: None
[2023-10-08 10:38] VITALS: BP 127/72; O2SAT 94
== END 2023-10-08 08:30 | disposition home or self-care (01) ==
LOC: SDS 08:29
PROVIDERS: ATTEND Surgery
PROC: 0DBM8ZX Excision of Descending Colon, Via Natural or Artificial Opening Endoscopic, Diagnostic (ICD-10-PCS; principal; 2023-10-08 09:30)
DX: Z12.11 Encounter for screening for malignant neoplasm of colon (principal); K63.5 Polyp of colon; I10 Essential (primary) hypertension; J44.9 Chronic obstructive pulmonary disease, unspecified; J43.9 Emphysema, unspecified; K57.30 Diverticulosis of large intestine without perforation or abscess without bleeding; E66.9 Obesity, unspecified; G47.30 Sleep apnea, unspecified; Z68.34 Body mass index [BMI] 34.0-34.9, adult
CPT/HCPCS: 45385; A9270; J7120

== ENCOUNTER 2024-03-07 13:37 | Outpatient (CLI) | payer MEDICARE ==
[2024-03-07 14:00] LABS: BASOPHILS % (AUTO) 0.5 %; EOSINOPHILS % (AUTO) 0.6 %; HCT - HEMATOCRIT 43.5 % (42.0-52.0); HGB - HEMOGLOBIN 13.9 g/dL (14.0-18.0); LYMPHOCYTES % (AUTO) 16.1 %; MEAN CORPUSCULAR VOLUME 87.7 fL (80.0-94.0); MEAN PLATELET VOLUME 9.3 fL (7.4-11.4); MONOCYTES # (AUTO) 0.4 10^3/uL (0.0-1.0); MONOCYTES % (AUTO) 5.6 %; NEUTROPHILS # (AUTO) 4.9 10^3/uL (1.5-6.6); NEUTROPHILS % (AUTO) 76.9 %; PLT - PLATELET COUNT 225 10^3/uL (130-450); RED BLOOD COUNT 4.96 10^6/uL (4.70-6.10); RED CELL DISTRIBUTION WIDTH 15.2 % (12.0-15.0); WHITE BLOOD COUNT 6.4 x10^3/uL (4.8-10.8)
[2024-03-07 14:12] LABS: ALBUMIN 4.7 g/dL (3.2-5.5); ALBUMIN/GLOBULIN RATIO 1.8 (1.0-2.2); ALKALINE PHOSPHATASE 52 IU/L (42-121); ALT ALANINE AMINOTRANSFERASE 16 IU/L (10-60); AST ASPARTATE AMINOTRANSFERASE 17 IU/L (10-42); BILIRUBIN,TOTAL 1.3 mg/dL (0.2-1.0); BUN - BLOOD UREA NITROGEN 35 mg/dL (6-20); CARBON DIOXIDE - CO2 27 mmol/L (21-32); CHLORIDE 106 mmol/L (101-111); CHOL/HDL RATIO 2.9 (<5.0); CHOLESTEROL 141 mg/dL; CREATININE 1.3 mg/dL (0.6-1.3); GFR - MDRD 52 (>89); GLUCOSE 101 mg/dL (74-104); HDL CHOLESTEROL 48 mg/dL; LDL CHOLESTEROL,CALCULATED 74 mg/dL; LDL/HDL RATIO 1.5 (<3.6); POTASSIUM 4.2 mmol/L (3.5-4.5); SODIUM 139 mmol/L (135-145); TOTAL PROTEIN 7.3 g/dL (6.4-8.9); TRIGLYCERIDES 95 mg/dL; VLDL CHOLESTEROL 19 mg/dL
[2024-03-07 14:28] LABS: THYROID STIMULATING HORMONE 2.13 uIU/mL (0.34-5.60)
[2024-03-07 22:11] LABS: ESTIMATED AVERAGE GLUCOSE 114 mg/dL (70-100); HEMOGLOBIN A1c% 5.6 % (4.27-6.07)
== END 2024-03-07 13:38 | disposition home or self-care (01) ==
LOC: LAB 13:37
PROVIDERS: ATTEND Family Medicine
DX: C61 Malignant neoplasm of prostate (principal); E66.9 Obesity, unspecified; M10.9 Gout, unspecified; R73.9 Hyperglycemia, unspecified; F31.9 Bipolar disorder, unspecified; E80.6 Other disorders of bilirubin metabolism; J44.9 Chronic obstructive pulmonary disease, unspecified; E78.5 Hyperlipidemia, unspecified; F90.9 Attention-deficit hyperactivity disorder, unspecified type
CPT/HCPCS: 36415; 80053; 80061; 83036; 83721; 84153; 84443; 85025

== ENCOUNTER 2024-10-17 01:31 | Inpatient (IN) ==
--- NOTE | 2024-10-17 01:42 | ED Physician Documentation ---
History of Present Illness Stated complaint Stated Complaint: GLF, WEAKNESS Chief complaint Chief Complaint: Resp History obtained from History obtained from: Patient and EMS Additonal information Additional information: 89yM with pmh copd presents bibems with flu symptoms X few days, and multiple falls, weakness, and intermittent confusion per to ems. patient has not hit head or lost consciousness. he received duoneb en route with improvement in soa. patient is weak, slow to respond, unable to give reliable history. Meds/Allgy Home Medications Ambulatory Orders Medication Instructions Recorded Confirmed escitalopram oxalate 20 mg tablet 20 mg PO DAILY 09/19/13 07/18/24 (Lexapro) budesonide-formoterol HFA 160 inhalation 06/09/24 07/18/24 mcg-4.5 mcg/actuation aerosol inhaler (Symbicort) cholecalciferol (vitamin D3) 25 25 mcg PO QDAY 06/09/24 07/18/24 mcg (1,000 unit) capsule clobetasol 0.05 % topical ointment 1 applic topical QDAY 06/09/24 07/18/24 fexofenadine 180 mg tablet 180 mg PO BID 06/09/24 07/18/24 fluoride (sodium) 1.1 % dental 1 applic dental QDAY 06/09/24 07/18/24 paste (Clinpro 5000) terbinafine HCl 250 mg tablet 250 mg PO QDAY 06/09/24 07/18/24 triamcinolone acetonide 0.1 % 1 applic topical QDAY 06/09/24 07/18/24 topical cream metoprolol succinate 25 mg 50 mg (2 x 25 mg) PO QDAY #180 tabs 07/03/24 07/18/24 tablet,extended release 24 hr methylphenidate HCl 10 mg tablet 10 mg PO QAM #30 tabs 07/06/24 07/18/24 (Ritalin) rosuvastatin 20 mg tablet See Rx Instructions .Route 07/06/24 07/18/24 .COMPLEX #90 tabs clobetasol 0.05 % scalp solution topical 07/18/24 07/18/24 upadacitinib 30 mg tablet,extended mg PO 07/18/24 07/18/24 release 24 hr (Rinvoq) albuterol sulfate 90 mcg/actuation 2 puff inhalation Q6H PRN 07/27/24 aerosol inhaler (Ventolin HFA) shortness of breath or wheezing #8.5 grams sildenafil 25 mg tablet (Viagra) 25 mg PO QDAY PRN sexual activity 08/05/24 #30 tabs methylphenidate HCl 10 mg tablet 80 mg (8 x 10 mg) PO .COMPLEX #240 09/15/24 (Ritalin) tabs Allergies Allergies Allergy/AdvReac Type Severity Reaction Status Date / Time No Known Drug Allergies Allergy Verified 10/17/24 01:46 [facility] Active Problems All Active Problems (Updated 10/17/24 @ 02:52 by Lexus Jackson MD) NISHA (acute kidney injury) (Acute) Confusion (Acute) Multiple falls (Acute) Weakness (Acute) Flu (Acute) COPD (chronic obstructive pulmonary disease) (Chronic) Bipolar I disorder (Acute) Hypertension (Acute) Prostate CA (Acute) Attention deficit hyperactivity disorder (ADHD), inattentive type, severe (Acute) Colon cancer screening (Acute) ADD (attention deficit disorder) (Acute) Fracture of left ankle, lateral malleolus (Acute) Family History Family History (Updated 07/18/24 @ 15:20 by Jayda Shukla LPN) Mother Congenital heart disease Macular degeneration Maternal grandfather Macular degeneration Father ALS (amyotrophic lateral sclerosis) Social History Social History (Updated 07/18/24 @ 15:24 by Jayda Shukla LPN) Smoking Status: Former smoker If you are a former smoker, when did you quit? (Date/Year): Number of Years Smoked: 10 How many cigarettes a day do you smoke? (20 cigarettes=1 Pk): 5 Second hand tobacco smoke exposure: Yes Do you dip or chew tobacco?: No Do you vape?: No Patient requests smoking cessation consult: No Initiate information on smoking cessation: No Living arrangement: At home Living Condition: With spouse/s.o. 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 large body habitus HENMT normocephalic and head/scalp atraumatic Eyes PERRL and EOMs intact bilaterally Chest inspection of chest normal Respiratory coarse bilateral breath sounds Cardiovascular normal heart rate noted and regular rhythm noted Gastrointestinal abdomen normal to inspection and abdomen soft to palpation Neurology grout machine tender II-XII intact, no focal motor deficit noted, no sensory deficits noted, speech normal and coordination normal GCS 14 (confusion of speech) Results Vitals Vitals: Vital Signs - 24 hr 10/17/24 01:35 10/17/24 01:36 10/17/24 01:54 Temperature 37.2 C Temperature Source Temporal Artery Scan Pulse Rate 99 Respiratory Rate 24 Blood Pressure 147/90 H O2 Saturation 89 L Oxygen Delivery Method Nasal Cannula Nasal Cannula O2 Source Room air Oxygen Flow Rate 2 If not protocol: Oxygen Flow, liters/minute 2 Pain Intensity 1 10/17/24 02:21 Temperature Temperature Source Pulse Rate Respiratory Rate Blood Pressure O2 Saturation Oxygen Delivery Method O2 Source Oxygen Flow Rate If not protocol: Oxygen Flow, liters/minute Pain Intensity 0 Oxygen O2 Source [With Activity] Nasal cannula O2 Source [Without Activity] Nasal cannula O2 Source Room air Oxygen Flow Rate 2 Labs Labs: Laboratory Tests 10/17/24 01:50 WBC 10.3 RBC 4.60 L Hgb 13.4 L Hct 42.9 MCV 93.3 MCH 29.1 MCHC 31.2 L RDW 14.0 Plt Count 248 MPV 9.3 Neut # (Auto) 8.9 H Lymph # (Auto) 0.5 L Glenn # (Auto) 0.8 Eos # (Auto) 0.0 Baso # (Auto) 0.0 Absolute Nucleated RBC 0.00 Nucleated RBC % 0.0 Sodium 135 Potassium 4.1 Chloride 99 L Carbon Dioxide 27 Anion Gap 9.0 BUN 26 H Creatinine 1.6 H Estimated GFR (MDRD) 41 L Glucose 113 H Calcium 9.4 Total Bilirubin 1.5 H AST 25 ALT 19 Alkaline Phosphatase 45 Total Protein 6.6 Albumin 4.5 Globulin 2.1 Albumin/Globulin Ratio 2.1 Lipase 13 Nasal Adenovirus (PCR) NOT DETECTED Nasal B. parapertussis DNA (PCR) NOT DETECTED Nasal Coronavir 229E PCR NOT DETECTED Nasal Coronavir HKU1 PCR NOT DETECTED Nasal Coronavir NL63 PCR NOT DETECTED Nasal Coronavir OC43 PCR NOT DETECTED Nasal Enterovir/Rhinovir PCR NOT DETECTED Nasal Influ A H1 2009 PCR DETECTED A Nasal Influenza B PCR NOT DETECTED Nasal Influenza A PCR NOT DETECTED Nasal Parainfluen 1 PCR NOT DETECTED Nasal Parainfluen 2 PCR NOT DETECTED Nasal Parainfluen 3 PCR NOT DETECTED Nasal Parainfluen 4 PCR NOT DETECTED Nasal RSV (PCR) NOT DETECTED Nasal B.pertussis DNA PCR NOT DETECTED Nasal C.pneumoniae (PCR) NOT DETECTED Sergio Human Metapneumo PCR NOT DETECTED Nasal M.pneumoniae (PCR) NOT DETECTED Nasal SARS-CoV-2 (PCR) NOT DETECTED PD Medical Decision Making ED course ED course: 89yM p/w weakness, multiple falls without injury in setting of influenza. patient was hypoxic en route and received duoneb with improvement in oxygenation. he is 91%RA on arrival. plan to monitor, check rvp, cxr, cbc, abdominal panel and provide ivf then reevaluate. cxr shows no pneumonia. he is f esther + and quite confused, lying in bed muttering to himself continually. he has nisha with cre 1.6 (baseline 1.3 on 03/07/24). plan to admit for influenza, encephalopathy, nisha, weakness. Discharge Plan Discharge Patient Disposition: 66 [facility] DC/Xfer Condition: Fair Clinical Impression: Flu, Weakness, Multiple falls, Confusion, NISHA (acute kidney injury) Prescriptions: No Action metoprolol succinate 25 mg tablet extended release 24 hr 50 mg PO QDAY Qty: 180 3RF rosuvastatin 20 mg tablet See Rx Instructions .ROUTE .COMPLEX Qty: 90 3RF Dose Instruction: TAKE 1 TABLET BY MOUTH AT BEDTIME Rx Instructions: TAKE 1 TABLET BY MOUTH AT BEDTIME methylphenidate HCl [Ritalin] 10 mg tablet 10 mg PO QAM Qty: 30 0RF albuterol sulfate [Ventolin HFA] 90 mcg/actuation HFA aerosol inhaler 2 puff inhalation Q6H PRN (Reason: shortness of breath or wheezing) Qty: 8.5 3RF sildenafil [Viagra] 25 mg tablet 25 mg PO QDAY PRN (Reason: sexual activity) Qty: 30 1RF Rx Instructions: administer 30 minutes to 4 hours before activity methylphenidate HCl [Ritalin] 10 mg tablet 80 mg PO .COMPLEX Qty: 240 0RF Rx Instructions: 80 mg orally take three tabs in am, two tabs at noon and 4 pm, and 1 tab in eventing; [facility] ONLY escitalopram oxalate [Lexapro] 20 MG tablet 20 mg PO DAILY Rinvoq 30 mg tablet extended release 24 hr PO clobetasol 0.05 % solution topical budesonide-formoterol [Symbicort] 160-4.5 mcg/actuation HFA aerosol inhaler inhalation terbinafine HCl 250 mg tablet 250 mg PO QDAY fluoride (sodium) [Clinpro 5000] 1.1 % paste 1 applic dental QDAY triamcinolone acetonide 0.1 % cream 1 applic topical QDAY clobetasol 0.05 % ointment 1 applic topical QDAY cholecalciferol (vitamin D3) 25 mcg (1,000 unit) capsule 25 mcg PO QDAY fexofenadine 180 mg tablet 180 mg PO BID Print Language: Lithuanian
[2024-10-17 02:00] LABS: BASOPHILS % (AUTO) 0.3 %; HCT - HEMATOCRIT 42.9 % (42.0-52.0); HGB - HEMOGLOBIN 13.4 g/dL (14.0-18.0); LYMPHOCYTES # (AUTO) 0.5 10^3/uL (1.5-3.5); LYMPHOCYTES % (AUTO) 4.4 %; MEAN CORPUSCULAR HEMOGLOBIN 29.1 pg (27.0-31.0); MEAN CORPUSCULAR HGB CONC 31.2 g/dL (32.0-36.0); MEAN CORPUSCULAR VOLUME 93.3 fL (80.0-94.0); MEAN PLATELET VOLUME 9.3 fL (7.4-11.4); MONOCYTES # (AUTO) 0.8 10^3/uL (0.0-1.0); MONOCYTES % (AUTO) 7.7 %; NEUTROPHILS # (AUTO) 8.9 10^3/uL (1.5-6.6); NEUTROPHILS % (AUTO) 87.1 %; PLT - PLATELET COUNT 248 10^3/uL (130-450); WHITE BLOOD COUNT 10.3 x10^3/uL (4.8-10.8)
[2024-10-17 02:14] LABS: ALBUMIN 4.5 g/dL (3.2-5.5); ALBUMIN/GLOBULIN RATIO 2.1 (1.0-2.2); BILIRUBIN,TOTAL 1.5 mg/dL (0.2-1.0); CALCIUM 9.4 mg/dL (8.5-10.3); CREATININE 1.6 mg/dL (0.6-1.3); POTASSIUM 4.1 mmol/L (3.5-4.5); TOTAL PROTEIN 6.6 g/dL (6.4-8.9)
[2024-10-17] MEDS: OSELTAMIVIR 75 MG CAPSULE PO STA (02:21)
[2024-10-17] MEDS: ACETAMINOPHEN 325 MG TABLET PO STA (02:21)
[2024-10-17] MEDS: SODIUM CHLORIDE 0.9% 500 ML IV ONE (02:25)
[2024-10-17 02:47] LABS: B. PARAPERTUSSIS- RESP PCR PAN NOT DETECTED; B. PERTUSSIS- RESP PCR PANEL NOT DETECTED; C. PNEUMONIAE- RESP PCR PANEL NOT DETECTED; CORONAVIRUS 229E-RESP PCR NOT DETECTED; CORONAVIRUS HKU1-RESP PCR NOT DETECTED; CORONAVIRUS NL63-RESP PCR NOT DETECTED; CORONAVIRUS OC43-RESP PCR NOT DETECTED; HUMAN METAPNEUMOVIRUS NOT DETECTED; INFLUENZA A H1 2009- RESP PCR DETECTED; INFLUENZA A- RESP PCR PANEL NOT DETECTED; INFLUENZA B - RESP PCR PANEL NOT DETECTED; M. PNEUMONIAE- RESP PCR PANEL NOT DETECTED; PARAINFLUENZA VIRUS 1 NOT DETECTED; PARAINFLUENZA VIRUS 2 NOT DETECTED; PARAINFLUENZA VIRUS 4 NOT DETECTED; RHINOVIRUS/ENTEROVIRUS NOT DETECTED; RSV- RESP PCR PANEL NOT DETECTED; SARS-CoV-2 -RESP PCR PANEL NOT DETECTED
[2024-10-17 03:15] LABS: VBG BASE EXCESS -0.2 mmol/L (-2 - +2); VBG PCO2 44.7 mmHg (41-51); VBG PH 7.359 (7.31-7.41); VBG PO2 44.1 mmHg (25-47); VBG TOTAL CO2 26.8 mmol/L (24-29)
--- NOTE | 2024-10-17 03:38 | HISTORY & PHYSICAL EXAMINATION ---
Chief Complaint Chief Complaint Chief Complaint: confusion History of Present Illness Admitted From Admitted From:: ER History Obtained From Records Reviewed: Yes History obtained from: ER provider, patient History of Present Illness HPI Comment/Other: 89 yo M who presented with confusion. His voice is very gurgled so it is difficult to understand his responses to questions but his response to the year is 2024. He is also oriented to his full name. He denies any issue with memory. He got his flu shot. He also denies any prior knowledge of kidney problems or weak kidneys. He denies any need for assistance walking at home at baseline. Review of Systems A comprehensive ROS was completed, pertinent positives and negatives are noted in the HPI and all other systems reviewed negative. PFSH Active Problems All Active Problems (Updated 10/17/24 @ 02:52 by Lexus Jackson MD) NISHA (acute kidney injury) (Acute) Confusion (Acute) Multiple falls (Acute) Weakness (Acute) Flu (Acute) COPD (chronic obstructive pulmonary disease) (Chronic) Bipolar I disorder (Acute) Hypertension (Acute) Prostate CA (Acute) Attention deficit hyperactivity disorder (ADHD), inattentive type, severe (Acute) Colon cancer screening (Acute) ADD (attention deficit disorder) (Acute) Fracture of left ankle, lateral malleolus (Acute) Family History Family History (Updated 07/18/24 @ 15:20 by Jayda Shukla LPN) Mother Congenital heart disease Macular degeneration Maternal grandfather Macular degeneration Father ALS (amyotrophic lateral sclerosis) Social History Social History (Updated 07/18/24 @ 15:24 by Jayda Shukla LPN) Smoking Status: Former smoker If you are a former smoker, when did you quit? (Date/Year): Number of Years Smoked: 10 How many cigarettes a day do you smoke? (20 cigarettes=1 Pk): 5 Second hand tobacco smoke exposure: Yes Do you dip or chew tobacco?: No Do you vape?: No Patient requests smoking cessation consult: No Initiate information on smoking cessation: No Living arrangement: At home Living Condition: With spouse/s.o. 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 Known occupational exposures/hazards (Current/Previous): None known Service: Yes Dates of Service: [id number] Are you following a diet prescribed by a doctor: No Are you following a special diet: Yes Special Diet Details: Portion control Meds/Allgy Home Medications Ambulatory Orders Medication Instructions Recorded Confirmed escitalopram oxalate 20 mg tablet 20 mg PO DAILY 09/19/13 07/18/24 (Lexapro) budesonide-formoterol HFA 160 inhalation 06/09/24 07/18/24 mcg-4.5 mcg/actuation aerosol inhaler (Symbicort) cholecalciferol (vitamin D3) 25 25 mcg PO QDAY 06/09/24 07/18/24 mcg (1,000 unit) capsule clobetasol 0.05 % topical ointment 1 applic topical QDAY 06/09/24 07/18/24 fexofenadine 180 mg tablet 180 mg PO BID 06/09/24 07/18/24 fluoride (sodium) 1.1 % dental 1 applic dental QDAY 06/09/24 07/18/24 paste (Clinpro 5000) terbinafine HCl 250 mg tablet 250 mg PO QDAY 06/09/24 07/18/24 triamcinolone acetonide 0.1 % 1 applic topical QDAY 06/09/24 07/18/24 topical cream metoprolol succinate 25 mg 50 mg (2 x 25 mg) PO QDAY #180 tabs 07/03/24 07/18/24 tablet,extended release 24 hr methylphenidate HCl 10 mg tablet 10 mg PO QAM #30 tabs 07/06/24 07/18/24 (Ritalin) rosuvastatin 20 mg tablet See Rx Instructions .Route 07/06/24 07/18/24 .COMPLEX #90 tabs clobetasol 0.05 % scalp solution topical 07/18/24 07/18/24 upadacitinib 30 mg tablet,extended mg PO 07/18/24 07/18/24 release 24 hr (Rinvoq) albuterol sulfate 90 mcg/actuation 2 puff inhalation Q6H PRN 07/27/24 aerosol inhaler (Ventolin HFA) shortness of breath or wheezing #8.5 grams sildenafil 25 mg tablet (Viagra) 25 mg PO QDAY PRN sexual activity 08/05/24 #30 tabs methylphenidate HCl 10 mg tablet 80 mg (8 x 10 mg) PO .COMPLEX #240 09/15/24 (Ritalin) tabs Allergies Allergies Allergy/AdvReac Type Severity Reaction Status Date / Time No Known Drug Allergies Allergy Verified 10/17/24 01:46 Exam Exam General: awake, no acute distress Lungs: diminished Heart: irregularly irregular rhythm Abdomen: Soft, nontender, nondistended, normal bowel sounds Musculoskeletal: Normal range of motion and strength, No tenderness Skin: Skin is warm, dry and pink; b/l 2+ LE edema Neurologic: alert, oriented Conclusion/Plan Problem List (1) Flu: (2) NISHA (acute kidney injury): Plan 1. Sepsis secondary to influenza A could not take Tamiflu in ER due to concern for aspiration; supp tx, monitor vitals; unable to view cxr but per staff, consolidation, will order procalcitonin, duoneb 2. NISHA - trend labs, IVF 3. Multiple falls PT/OT 4. COPD without acute exacerbation 5. Bipolar disorder 6. HTN 7. History of prostate cancer 8. ADHD 9. VTE prophylaxis lovenox 10. Dispo admit to med/surg Code status discussed, he wishes to be full code with chest compressions and intubation, if necessary. Discussed plan of care with patient and his bedside RN. Case discussed at length with ER provider. Notes reviewed. This H&P was accomplished using Telemedicine services via [facility] and assistance for bedside assessment was carried out, interpreted and reported to me by the bedside nurse. Time spent 75min educating /interviewing patient, reviewing chart and coordinating care for patient. Lab Results 10/17/24 01:50 10/17/24 01:50
[2024-10-17] MEDS ORDERED: polyethylene glycoL 3350 17 GM PACKET PO PRN (04:06)
[2024-10-17] MEDS ORDERED: METHYLPHENIDATE 10 MG TABLET PO SCH ×2 (04:06)
[2024-10-17] MEDS ORDERED: SODIUM CHLORIDE FLUSH 0.9% 10 ML SYRINGE IVP PRN (04:06)
[2024-10-17] MEDS ORDERED: ACETAMINOPHEN 325 MG TABLET PO PRN (04:06)
[2024-10-17] MEDS ORDERED: ALBUTEROL NEB 2.5 MG/3 ML INH PRN (04:33)
[2024-10-17] MEDS: HEPARIN 5,000 UNIT/ML VIAL SUBQ SCH (08:43)
[2024-10-17] MEDS: TERBINAFINE 250 MG TABLET PO SCH (09:15)
[2024-10-17] MEDS: METOPROLOL SUCCINATE 50 MG TABLET PO SCH (09:15)
[2024-10-17] MEDS: ESCITALOPRAM 10 MG TABLET PO SCH (09:15)
[2024-10-17] MEDS: SODIUM CHLORIDE FLUSH 0.9% 10 ML SYRINGE IVP SCH (09:16)
[2024-10-17] MEDS: LORATADINE 10 MG TABLET PO SCH (09:19)
--- NOTE | 2024-10-17 12:53 | XRAY Report ---
PROCEDURE: XR Chest 1V INDICATIONS: soa, flu + TECHNIQUE: One view of the chest was acquired. COMPARISON: Chest x-ray 2018 FINDINGS: Patient is markedly rotated. Surgical changes and devices: None. Lungs and pleura: No pleural effusions or pneumothorax. No consolidation. Mediastinum: Mediastinal contours appear normal. Heart size is enlarged. Bones and chest wall: No suspicious bony lesions. Overlying soft tissues appear unremarkable. Old right rib fractures. IMPRESSION: No acute cardiopulmonary process. The above findings are concordant with preliminary report. Reviewed by: Mayi Martines MD on 10/17/2024 12:52 PM [facility] Approved by: Mayi Martines MD on 10/17/2024 12:52 PM [facility] Station ID: [id number]
--- NOTE | 2024-10-17 15:21 | PT Plan of Care ---
PT Inpatient Plan of Care DIAGNOSIS Diagnosis: GLF Diagnosis: influenza A, NISHA Referring Provider: Rena Jerez Patient Status: Inpatient CHIEF COMPLAINT Chief Complaint: limited mobility Onset of Chief Complaint: SHOE CLEANER BALANCE/FUNCTIONAL RESULTS Sitting Balance: Fair Standing Balance: Poor ASSESSMENT Assessment: Pt is an 89yo M referred for PT eval s/p GLF d/t weakness, influenza A, NISHA, encephalopathy. Pt lives with and sister in law in 3 story home with approx 15 stairs between floors, one handrail. Pt has a walker and hearing aids but per report pt does not use either. Pt is indep to [place] at home but has frequent falls. Upon PT eval, pt on O2 via [place], sats 93% or higher during session. Transfers to EOB with Ervin, STS w/ minAx2, and stand pivot with FWW and modAx2. Pt is unsteady in standing and requires mod multimodal cueing for safety and walker mgmt. Based on fall history and current level of assist required, pt is a high fall risk. Pt will benefit from skilled PT in acute setting to improve his balance and reduce his fall risk. When medically clear, PT rec dc to SNF as pt is unable to access multi-story [place] at this time. GOALS Improve supine to sit to:: Contact Guard Improve sit to stand to:: Contact Guard Improve pivot transfer ability to:: Minimal Assist Improve sit to supine to:: Contact Guard Improve gait ability to:: Min A Advance Assistive Device to:: Front Wheeled Walker Increase distance walked to (in feet):: 30 Reduce verbal cues to:: 4 Reduce physical cues to:: 4 Improve Lower Extremity ROM to:: No Active Movement Improve Sitting Balance to:: Good PLAN Frequency: 1-2x/day Duration: Until goals are met DISCHARGE RECOMMENDATIONS Discharge Location: [facility] Facility [place] Equipment Recommended: Front wheeled walker Transport Needs at Discharge: Wheelchair van
--- NOTE | 2024-10-17 16:06 | PHARMACY PROGRESS NOTE ---
Best Possible Medication History Admit Date and Time: 10/17/24313 Home Medications Medication Instructions Recorded Confirmed Type escitalopram oxalate 20 mg tablet 20 mg PO DAILY 09/19/13 10/17/24 History (Lexapro) budesonide-formoterol HFA 160 2 inh inhalation BID 06/09/24 10/17/24 History mcg-4.5 mcg/actuation aerosol inhaler (Symbicort) cholecalciferol (vitamin D3) 25 25 mcg PO DAILY 06/09/24 10/17/24 History mcg (1,000 unit) capsule clobetasol 0.05 % topical ointment 1 applic topical BID 06/09/24 10/17/24 History fexofenadine 180 mg tablet 180 mg PO BID 06/09/24 10/17/24 History fluoride (sodium) 1.1 % dental 1 applic dental QDAY 06/09/24 10/17/24 History paste (Clinpro 5000) terbinafine HCl 250 mg tablet 250 mg PO QDAY 06/09/24 10/17/24 History triamcinolone acetonide 0.1 % 1 applic topical DAILY 06/09/24 10/17/24 History topical cream rosuvastatin 20 mg tablet See Rx Instructions .Route 07/06/24 10/17/24 Rx .COMPLEX #90 tabs clobetasol 0.05 % scalp solution 1 applic topical BID 07/18/24 10/17/24 History upadacitinib 30 mg tablet,extended 30 mg PO DAILY 07/18/24 10/17/24 History release 24 hr (Rinvoq) albuterol sulfate 90 mcg/actuation 2 puff inhalation Q6H PRN 07/27/24 10/17/24 Rx aerosol inhaler (Ventolin HFA) shortness of breath or wheezing #8.5 grams sildenafil 25 mg tablet (Viagra) 25 mg PO QDAY PRN sexual activity 08/05/24 10/17/24 Rx #30 tabs alfuzosin 10 mg tablet,extended 10 mg PO DAILY 10/17/24 10/17/24 History release 24 hr methylphenidate HCl 10 mg tablet See Rx Instructions PO .COMPLEX 10/17/24 10/17/24 History (Ritalin) metoprolol succinate 25 mg 50 mg PO DAILY 10/17/24 10/17/24 History tablet,extended release 24 hr Processed by: Pharmacy Medications reviewed in ED?: Yes Medication History completed: Yes Patient Interview: Completed Secondary Source(s): Pharmacy records and Insurance records [facility] Statement: As the person ultimately responsible for medication therapy, providers are able to order a medication from an existing home medication list in [facility] via the "Reconcile Routine" prior to Confirmation of that medication by computer support technician. Such practice is discouraged except when the physician, in their clinical judgment, deems that a medical need exists for a medication without regard to previous use.
[2024-10-17] MEDS: ATORVASTATIN 40 MG TABLET PO SCH (21:52)
[2024-10-17] MEDS: OSELTAMIVIR 30 MG CAPSULE PO SCH (21:52)
[2024-10-18 06:00] LABS: HCT - HEMATOCRIT 41.5 % (42.0-52.0); HGB - HEMOGLOBIN 13.2 g/dL (14.0-18.0); MEAN CORPUSCULAR HEMOGLOBIN 29.5 pg (27.0-31.0); MEAN CORPUSCULAR HGB CONC 31.8 g/dL (32.0-36.0); MEAN CORPUSCULAR VOLUME 92.8 fL (80.0-94.0); MEAN PLATELET VOLUME 8.8 fL (7.4-11.4); RED BLOOD COUNT 4.47 10^6/uL (4.70-6.10); RED CELL DISTRIBUTION WIDTH 14.2 % (12.0-15.0)
[2024-10-18 06:13] LABS: CALCIUM 8.6 mg/dL (8.5-10.3); CREATININE 1.3 mg/dL (0.6-1.3); MAGNESIUM 1.9 mg/dL (1.7-2.3); POTASSIUM 4.2 mmol/L (3.5-4.5)
--- NOTE | 2024-10-18 09:38 | PROVIDER PROGRESS NOTE ---
Subjective Subjective Subjective: Patient is much improved this morning. He is alert and oriented x 4, able to talk in complete sentences. He is still having a cough. It is productive. There is some clear to green sputum production. He has no fevers or chills. We had a long discussion about SNF, or going to a rehab center to get stronger. He would prefer to go home, even though he has three flights of stairs at home. I did speak with his yesterday. She is very worried about him coming home. When he fell this time, she was not able to get him up. Current Medications Current Medications Current Medications: Current Medications Generic Name Dose Route Start Last Admin Trade Name Freq PRN Reason Stop Dose Admin Acetaminophen 650 mg 10/17/24 04:06 Acetaminophen 325 Mg Tablet PO Q4HR PRN Pain 1 to 4, or Fever Albuterol 2.5 mg 10/17/24 04:33 Albuterol Neb 2.5 Mg/3 Ml INH Q6H PRN shortness of breath or wheezing Albuterol/Ipratropium 3 ml 10/18/24 11:00 Ipratropium/Albuterol 3 Ml Neb INH RTQID LOGAN Atorvastatin Calcium 40 mg 10/17/24 21:00 10/17/24 21:52 Atorvastatin 40 Mg Tablet PO 40 mg QPM LOGAN Administration Escitalopram Oxalate 20 mg 10/17/24 09:00 10/18/24 08:34 Escitalopram 10 Mg Tablet PO 20 mg DAILY LOGAN Administration Heparin Sodium (Porcine) 5,000 unit 10/17/24 09:00 10/18/24 08:35 Heparin 5,000 Unit/Ml Vial SUBQ 5,000 unit BID LOGAN Administration Loratadine 10 mg 10/17/24 09:00 10/18/24 08:34 Loratadine 10 Mg Tablet PO 10 mg DAILY LOGAN Administration Metoprolol Succinate 50 mg 10/17/24 09:00 10/18/24 08:34 Metoprolol Succinate 50 Mg Tablet PO 50 mg DAILY LOGAN Administration Multi-Ingredient Ointment 1 applic 10/17/24 05:59 Zinc Oxide 20% Oint 30 Gm Tube TOP PRN PRN Skin Care Oseltamivir Phosphate 30 mg 10/17/24 21:00 10/18/24 08:34 Oseltamivir 30 Mg Capsule PO 10/21/24 21:01 30 mg BID LOGAN Administration Polyethylene Glycol 17 gm 10/17/24 04:06 Polyethylene Glycol 3350 17 Gm Packet PO DAILY PRN Constipation Prednisone 40 mg 10/18/24 09:00 Prednisone 20 Mg Tablet PO DAILYWM LOGAN Sodium Chloride 10 ml 10/17/24 04:06 Sodium Chloride Flush 0.9% 10 Ml Syringe IVP PRN PRN NEEDED PER PROVIDER ORDERS Sodium Chloride 10 ml 10/17/24 09:00 10/18/24 08:35 Sodium Chloride Flush 0.9% 10 Ml Syringe IVP 10 ml 0100,0900,1700 LOGAN Administration Terbinafine HCl 250 mg 10/17/24 09:00 10/18/24 08:34 Terbinafine 250 Mg Tablet PO 250 mg DAILY LOGAN Administration Objective Vital Signs/Intake & Output Reviewed Vital Signs: Yes Vital Signs: Vital Signs x48h Temp Pulse Resp BP Pulse Ox O2 Flow Rate 10/18/24 09:03 99.3 F 75 22 135/71 H 90 L 2 Intake & Output: Intake & Output 10/15/24 10/16/24 10/17/24 10/18/24 23:59 23:59 23:59 23:59 Intake Total 920 / 920 Output Total 920 / 920 450 / 450 Balance 0 / 0 -450 / -450 Weight (kg) 110.5 kg Objective General Appearance: positive No acute distress and Alert; negative Anxious Eyes Bilateral: positive Normal inspection, PERRL and EOMI ENT: positive ENT inspection nml, Pharynx nml and No signs of dehydration Neck: positive Nml inspection, Thyroid nml, No JVD and Trachea midline Respiratory: positive Chest non-tender, No respiratory distress, Wheezes and Rales Cardiovascular: positive Regular rate & rhythm, No murmur and No gallop; negative Systolic murmur or Diastolic murmur Abdomen: positive No distention; negative Tenderness, Guarding, Rebound, Hepatomegaly or Splenomegaly Back: positive Nml inspection; negative CVA tenderness (R) or CVA tenderness (L) Skin: positive Color nml, No rash and Warm Extremities: positive Non-tender, Full ROM and No pedal edema Neurologic/Psychiatric: positive Oriented x3, Motor nml and Mood/affect nml Lab Results 10/18/24 05:55 10/18/24 05:55 Other Labs: Lab Results x24hrs 10/18/24 Range/Units 05:55 WBC 7.0 (4.8-10.8) x10^3/uL RBC 4.47 L (4.70-6.10) 10^6/uL Hgb 13.2 L (14.0-18.0) g/dL Hct 41.5 L (42.0-52.0) % MCV 92.8 (80.0-94.0) fL MCH 29.5 (27.0-31.0) pg MCHC 31.8 L (32.0-36.0) g/dL RDW 14.2 (12.0-15.0) % Plt Count 213 (130-450) 10^3/uL MPV 8.8 (7.4-11.4) fL Sodium 134 L (135-145) mmol/L Potassium 4.2 (3.5-4.5) mmol/L Chloride 101 (101-111) mmol/L Carbon Dioxide 28 (21-32) mmol/L Anion Gap 5.0 L (6-13) BUN 26 H (6-20) mg/dL Creatinine 1.3 (0.6-1.3) mg/dL Estimated GFR (MDRD) 52 L (>89) Glucose 90 (74-104) mg/dL Calcium 8.6 (8.5-10.3) mg/dL Magnesium 1.9 (1.7-2.3) mg/dL Diagnostic Imaging Diagnostic Imaging Results: positive Final report reviewed Assessment/Plan Problem List (1) Acute hypoxic respiratory failure: Impression: Likely due to influenza A causing COPD exacerbation. Patient is still requiring 2 L to maintain oxygen saturations greater than 88%. Lung exam with diffuse expiratory wheezing, mild rales. Continue prednisone 40 mg daily, Tamiflu, DuoNebs [id number]. Will do three days of azithromycin for COPD exacerbation. Will wean down as tolerated. Chest x-ray with no obvious infiltrates. White count within normal limits. No concern for superimposed bacterial infection at this time. (2) Influenza A: Impression: Management as above. (3) NISHA (acute kidney injury): Impression: Resolved. Patient does have a history of chronic kidney disease. Creatinine is around baseline of 1.3-1.6. Continue to monitor. (4) Bipolar I disorder: Impression: Continue home medications for this including Lexapro. Patient is on high dose Ritalin for ADHD. PCP note states that the Ritalin may also be used for bipolar disorder. Patient's will bring it in. (5) Hypertension: Impression: Continue metoprolol. Qualifiers: Hypertension type: unspecified Qualified Code(s): I10 - Essential (primary) hypertension (6) Prostate CA: Impression: Jo placed for retention on 10/17. Will remove Jo tomorrow morning, do TOV. If negative, has follow up appointment with Urology already. (7) Attention deficit hyperactivity disorder (ADHD), inattentive type, severe: Impression: Continue Ritalin per home dosage. is going to bring this in.
[2024-10-18] MEDS: predniSONE 20 MG TABLET PO SCH (09:47)
[2024-10-18] MEDS: IPRATROPIUM/ALBUTEROL 3 ML NEB INH SCH (10:46)
[2024-10-18] MEDS: AZITHROMYCIN 250 MG TABLET PO SCH (13:42)
[2024-10-19 06:03] LABS: HCT - HEMATOCRIT 39.8 % (42.0-52.0); HGB - HEMOGLOBIN 12.8 g/dL (14.0-18.0); MEAN CORPUSCULAR HEMOGLOBIN 29.5 pg (27.0-31.0); MEAN CORPUSCULAR HGB CONC 32.2 g/dL (32.0-36.0); MEAN CORPUSCULAR VOLUME 91.7 fL (80.0-94.0); RED BLOOD COUNT 4.34 10^6/uL (4.70-6.10); RED CELL DISTRIBUTION WIDTH 14.2 % (12.0-15.0); WHITE BLOOD COUNT 7.8 x10^3/uL (4.8-10.8)
[2024-10-19 06:21] LABS: CALCIUM 8.9 mg/dL (8.5-10.3); CREATININE 1.7 mg/dL (0.6-1.3); POTASSIUM 4.1 mmol/L (3.5-4.5)
[2024-10-19] MEDS: guaiFENesin 600 MG TABLET PO PRN (06:41)
[2024-10-19] MEDS: ZINC OXIDE 20% OINT 30 GM TUBE TOP PRN (08:54)
--- NOTE | 2024-10-19 09:19 | PROVIDER PROGRESS NOTE ---
Subjective Subjective Subjective: Patient is much improved this morning. He is alert and oriented x 4, able to talk in complete sentences. He is still having a cough. It is productive. There is some clear to green sputum production. He has no fevers or chills. I did speak with his yesterday. She is very worried about him coming home. When he fell this time, she was not able to get him up. She is going to bring in his Ritalin today. He has been sleeping a lot since being here but is on a high dose of stimulants normally which he hasn't been receiving here. Patient is medically cleared for discharge - on room air now. Awaiting placement to [facility]. Current Medications Current Medications Current Medications: Current Medications Generic Name Dose Route Start Last Admin Trade Name Freq PRN Reason Stop Dose Admin Acetaminophen 650 mg 10/17/24 04:06 Acetaminophen 325 Mg Tablet PO Q4HR PRN Pain 1 to 4, or Fever Albuterol 2.5 mg 10/17/24 04:33 Albuterol Neb 2.5 Mg/3 Ml INH Q6H PRN shortness of breath or wheezing Albuterol/Ipratropium 3 ml 10/18/24 11:00 10/19/24 05:36 Ipratropium/Albuterol 3 Ml Neb INH 3 ml RTQID LOGAN Administration Atorvastatin Calcium 40 mg 10/17/24 21:00 10/18/24 21:05 Atorvastatin 40 Mg Tablet PO 40 mg QPM LOGAN Administration Azithromycin 500 mg 10/18/24 13:00 10/19/24 08:53 Azithromycin 250 Mg Tablet PO 10/20/24 09:01 500 mg DAILY LOGAN Administration Escitalopram Oxalate 20 mg 10/17/24 09:00 10/19/24 08:53 Escitalopram 10 Mg Tablet PO 20 mg DAILY LOGAN Administration Guaifenesin 600 mg 10/19/24 02:14 10/19/24 06:41 Guaifenesin 600 Mg Tablet PO 600 mg BID PRN Administration congestion Heparin Sodium (Porcine) 5,000 unit 10/17/24 09:00 10/19/24 08:54 Heparin 5,000 Unit/Ml Vial SUBQ 5,000 unit BID LOGAN Administration Loratadine 10 mg 10/17/24 09:00 10/19/24 08:53 Loratadine 10 Mg Tablet PO 10 mg DAILY LOGAN Administration Metoprolol Succinate 50 mg 10/17/24 09:00 10/19/24 08:53 Metoprolol Succinate 50 Mg Tablet PO 50 mg DAILY LOGAN Administration Multi-Ingredient Ointment 1 applic 10/17/24 05:59 10/19/24 08:54 Zinc Oxide 20% Oint 30 Gm Tube TOP 1 applic PRN PRN Administration Skin Care Oseltamivir Phosphate 30 mg 10/17/24 21:00 10/19/24 08:53 Oseltamivir 30 Mg Capsule PO 10/21/24 21:01 30 mg BID LOGAN Administration Polyethylene Glycol 17 gm 10/17/24 04:06 Polyethylene Glycol 3350 17 Gm Packet PO DAILY PRN Constipation Prednisone 40 mg 10/18/24 09:00 10/19/24 08:53 Prednisone 20 Mg Tablet PO 40 mg DAILYWM LOGAN Administration Sodium Chloride 10 ml 10/17/24 04:06 Sodium Chloride Flush 0.9% 10 Ml Syringe IVP PRN PRN NEEDED PER PROVIDER ORDERS Sodium Chloride 10 ml 10/17/24 09:00 10/19/24 08:54 Sodium Chloride Flush 0.9% 10 Ml Syringe IVP 10 ml 0100,0900,1700 LOGAN Administration Objective Vital Signs/Intake & Output Reviewed Vital Signs: Yes Vital Signs: Vital Signs x48h Pulse Resp 10/19/24 05:37 78 20 Intake & Output: Intake & Output 10/16/24 10/17/24 10/18/24 10/19/24 23:59 23:59 23:59 23:59 Intake Total 920 / 920 1030 / 1030 100 / 100 Output Total 920 / 920 1150 / 1150 275 / 275 Balance 0 / 0 -120 / -120 -175 / -175 Weight (kg) 110.5 kg Objective General Appearance: positive No acute distress and Alert; negative Anxious Eyes Bilateral: positive Normal inspection, PERRL and EOMI ENT: positive ENT inspection nml, Pharynx nml and No signs of dehydration Neck: positive Nml inspection, Thyroid nml, No JVD and Trachea midline Respiratory: positive Chest non-tender, No respiratory distress, Wheezes and Rales Cardiovascular: positive Regular rate & rhythm, No murmur and No gallop; negative Systolic murmur or Diastolic murmur Abdomen: positive No distention; negative Tenderness, Guarding, Rebound, Hepatomegaly or Splenomegaly Back: positive Nml inspection; negative CVA tenderness (R) or CVA tenderness (L) Skin: positive Color nml, No rash and Warm Extremities: positive Non-tender, Full ROM and No pedal edema Neurologic/Psychiatric: positive Oriented x3, Motor nml and Mood/affect nml Lab Results 10/19/24 05:55 10/19/24 05:55 Other Labs: Lab Results x24hrs 10/19/24 Range/Units 05:55 WBC 7.8 (4.8-10.8) x10^3/uL RBC 4.34 L (4.70-6.10) 10^6/uL Hgb 12.8 L (14.0-18.0) g/dL Hct 39.8 L (42.0-52.0) % MCV 91.7 (80.0-94.0) fL MCH 29.5 (27.0-31.0) pg MCHC 32.2 (32.0-36.0) g/dL RDW 14.2 (12.0-15.0) % Plt Count 229 (130-450) 10^3/uL MPV 9.0 (7.4-11.4) fL Sodium 136 (135-145) mmol/L Potassium 4.1 (3.5-4.5) mmol/L Chloride 102 (101-111) mmol/L Carbon Dioxide 26 (21-32) mmol/L Anion Gap 8.0 (6-13) BUN 45 H (6-20) mg/dL Creatinine 1.7 H (0.6-1.3) mg/dL Estimated GFR (MDRD) 38 L (>89) Glucose 134 H (74-104) mg/dL Calcium 8.9 (8.5-10.3) mg/dL Diagnostic Imaging Diagnostic Imaging Results: positive Final report reviewed Assessment/Plan Problem List (1) Acute hypoxic respiratory failure: Impression: Likely due to influenza A causing COPD exacerbation. Patient is still requiring 2 L to maintain oxygen saturations greater than 88%. Continue prednisone 40 mg daily, Tamiflu, DuoNebs [id number]. Will do three days of azithromycin for COPD exacerbation. Chest x-ray with no obvious infiltrates. White count within normal limits. No concern for superimposed bacterial infection at this time. (2) Influenza A: Impression: Management as above. (3) NISHA (acute kidney injury): Impression: Resolved. Patient does have a history of chronic kidney disease. Creatinine is around baseline of 1.3-1.6. Continue to monitor. (4) Bipolar I disorder: Impression: Continue home medications for this including Lexapro. Patient is on high dose Ritalin for ADHD. PCP note states that the Ritalin may also be used for bipolar disorder. Patient's will bring it in. (5) Hypertension: Impression: Continue metoprolol. Qualifiers: Hypertension type: unspecified Qualified Code(s): I10 - Essential (primary) hypertension (6) Prostate CA: Impression: Jo placed for retention on 10/17. Will remove Jo tomorrow morning, do TOV. If negative, has follow up appointment with Urology already. (7) Attention deficit hyperactivity disorder (ADHD), inattentive type, severe: Impression: Continue Ritalin per home dosage. is going to bring this in.
[2024-10-19] MEDS: METHYLPHENIDATE 10 MG TABLET PO SCH ×2 (16:18→21:03)
[2024-10-19] MEDS: MELATONIN 3 MG TABLET PO PRN (23:56)
[2024-10-20 05:55] LABS: HCT - HEMATOCRIT 38.3 % (42.0-52.0); HGB - HEMOGLOBIN 12.7 g/dL (14.0-18.0); MEAN CORPUSCULAR HGB CONC 33.2 g/dL (32.0-36.0); MEAN CORPUSCULAR VOLUME 90.5 fL (80.0-94.0); MEAN PLATELET VOLUME 8.9 fL (7.4-11.4); RED BLOOD COUNT 4.23 10^6/uL (4.70-6.10); WHITE BLOOD COUNT 7.8 x10^3/uL (4.8-10.8)
[2024-10-20 06:14] LABS: CALCIUM 8.7 mg/dL (8.5-10.3); CREATININE 1.5 mg/dL (0.6-1.3); POTASSIUM 4.2 mmol/L (3.5-4.5)
[2024-10-20] MEDS: METHYLPHENIDATE 10 MG TABLET PO SCH (08:27)
[2024-10-20] MEDS: METOPROLOL SUCCINATE 25 MG TABLET PO SCH (08:27)
--- NOTE | 2024-10-20 09:31 | PROVIDER PROGRESS NOTE ---
Subjective Subjective Subjective: Patient is doing well. He is sleeping a lot. He has no shortness of breath. He still has a mild cough. His came in yesterday and brought in his home Ritalin. We have restarted his home dose. Patient is medically cleared for discharge - on room air now. Awaiting placement to [facility]. Current Medications Current Medications Current Medications: Current Medications Generic Name Dose Route Start Last Admin Trade Name Freq PRN Reason Stop Dose Admin Acetaminophen 650 mg 10/17/24 04:06 Acetaminophen 325 Mg Tablet PO Q4HR PRN Pain 1 to 4, or Fever Albuterol 2.5 mg 10/17/24 04:33 Albuterol Neb 2.5 Mg/3 Ml INH Q6H PRN shortness of breath or wheezing Albuterol/Ipratropium 3 ml 10/18/24 11:00 10/20/24 05:29 Ipratropium/Albuterol 3 Ml Neb INH 3 ml RTQID LOGAN Administration Atorvastatin Calcium 40 mg 10/17/24 21:00 10/19/24 21:03 Atorvastatin 40 Mg Tablet PO 40 mg QPM LOGAN Administration Escitalopram Oxalate 20 mg 10/17/24 09:00 10/20/24 08:26 Escitalopram 10 Mg Tablet PO 20 mg DAILY LOGAN Administration Guaifenesin 600 mg 10/19/24 02:14 10/20/24 08:26 Guaifenesin 600 Mg Tablet PO 600 mg BID PRN Administration congestion Heparin Sodium (Porcine) 5,000 unit 10/17/24 09:00 10/20/24 08:26 Heparin 5,000 Unit/Ml Vial SUBQ 5,000 unit BID LOGAN Administration Loratadine 10 mg 10/17/24 09:00 10/20/24 08:27 Loratadine 10 Mg Tablet PO 10 mg DAILY LOGAN Administration Melatonin 3 mg 10/19/24 23:40 10/19/24 23:56 Melatonin 3 Mg Tablet PO 3 mg QPM PRN Administration sleep Metoprolol Succinate 25 mg 10/20/24 09:00 10/20/24 08:27 Metoprolol Succinate 25 Mg Tablet PO 25 mg DAILY LOGAN Administration Multi-Ingredient Ointment 1 applic 10/17/24 05:59 10/19/24 08:54 Zinc Oxide 20% Oint 30 Gm Tube TOP 1 applic PRN PRN Administration Skin Care Oseltamivir Phosphate 30 mg 10/17/24 21:00 10/20/24 08:26 Oseltamivir 30 Mg Capsule PO 10/21/24 21:01 30 mg BID LOGAN Administration Methylphenidate 10 2 each 10/19/24 16:00 10/19/24 16:18 Mg Tablet PO 2 each 1200,1600 LOGAN Administration Methylphenidate 10 1 each 10/19/24 21:00 10/19/24 21:03 Mg Tablet PO 1 each QPM LOGAN Administration Methylphenidate 10 3 each 10/20/24 08:00 10/20/24 08:27 Mg Tablet PO 3 each [id number] LOGAN Administration Polyethylene Glycol 17 gm 10/17/24 04:06 Polyethylene Glycol 3350 17 Gm Packet PO DAILY PRN Constipation Prednisone 40 mg 10/18/24 09:00 10/20/24 08:26 Prednisone 20 Mg Tablet PO 40 mg DAILYWM LOGAN Administration Sodium Chloride 10 ml 10/17/24 04:06 Sodium Chloride Flush 0.9% 10 Ml Syringe IVP PRN PRN NEEDED PER PROVIDER ORDERS Sodium Chloride 10 ml 10/17/24 09:00 10/20/24 08:27 Sodium Chloride Flush 0.9% 10 Ml Syringe IVP 10 ml 0100,0900,1700 LOGAN Administration Objective Vital Signs/Intake & Output Reviewed Vital Signs: Yes Vital Signs: Vital Signs x48h Pulse Resp 10/20/24 05:29 72 20 Intake & Output: Intake & Output 10/17/24 10/18/24 10/19/24 10/20/24 23:59 23:59 23:59 23:59 Intake Total 920 / 920 1030 / 1030 1456 / 1456 200 / 200 Output Total 920 / 920 1150 / 1150 675 / 675 201 / 201 Balance 0 / 0 -120 / -120 781 / 781 -1 / -1 Weight (kg) 110.5 kg Objective General Appearance: positive No acute distress and Alert; negative Anxious Eyes Bilateral: positive Normal inspection, PERRL and EOMI ENT: positive ENT inspection nml, Pharynx nml and No signs of dehydration Neck: positive Nml inspection, Thyroid nml, No JVD and Trachea midline Respiratory: positive Chest non-tender, No respiratory distress and Rales (mild, bibasilar, improved) Cardiovascular: positive Regular rate & rhythm, No murmur and No gallop; negative Systolic murmur or Diastolic murmur Abdomen: positive No distention; negative Tenderness, Guarding, Rebound, Hepatomegaly or Splenomegaly Back: positive Nml inspection; negative CVA tenderness (R) or CVA tenderness (L) Skin: positive Color nml, No rash and Warm Extremities: positive Non-tender, Full ROM and No pedal edema Neurologic/Psychiatric: positive Oriented x3, Motor nml and Mood/affect nml Lab Results 10/20/24 05:48 10/20/24 05:48 Other Labs: Lab Results x24hrs 10/20/24 Range/Units 05:48 WBC 7.8 (4.8-10.8) x10^3/uL RBC 4.23 L (4.70-6.10) 10^6/uL Hgb 12.7 L (14.0-18.0) g/dL Hct 38.3 L (42.0-52.0) % MCV 90.5 (80.0-94.0) fL MCH 30.0 (27.0-31.0) pg MCHC 33.2 (32.0-36.0) g/dL RDW 14.0 (12.0-15.0) % Plt Count 211 (130-450) 10^3/uL MPV 8.9 (7.4-11.4) fL Sodium 136 (135-145) mmol/L Potassium 4.2 (3.5-4.5) mmol/L Chloride 101 (101-111) mmol/L Carbon Dioxide 28 (21-32) mmol/L Anion Gap 7.0 (6-13) BUN 46 H (6-20) mg/dL Creatinine 1.5 H (0.6-1.3) mg/dL Estimated GFR (MDRD) 44 L (>89) Glucose 103 (74-104) mg/dL Calcium 8.7 (8.5-10.3) mg/dL Magnesium 2.0 (1.7-2.3) mg/dL Diagnostic Imaging Diagnostic Imaging Results: positive Final report reviewed Assessment/Plan Problem List (1) Acute hypoxic respiratory failure: Impression: Resolved. Likely due to influenza A causing COPD exacerbation. Continue prednisone 40 mg daily, Tamiflu, DuoNebs [id number]. Will do three days of azithromycin for COPD exacerbation. Chest x-ray with no obvious infiltrates. White count within normal limits. No concern for superimposed bacterial infection at this time. (2) Influenza A: Impression: Management as above. (3) NISHA (acute kidney injury): Impression: Resolved. Patient does have a history of chronic kidney disease. Creatinine is around baseline of 1.3-1.6. Continue to monitor. (4) Bipolar I disorder: Impression: Continue home medications for this including Lexapro. Patient is on high dose Ritalin for ADHD. PCP note states that the Ritalin may also be used for bipolar disorder. Patient's will bring it in. (5) Hypertension: Impression: Continue metoprolol. Qualifiers: Hypertension type: unspecified Qualified Code(s): I10 - Essential (primary) hypertension (6) Prostate CA: Impression: Jo placed for retention on 10/17. Removed yesterday, no further retention noted. Continue bladder scans PRN. (7) Attention deficit hyperactivity disorder (ADHD), inattentive type, severe: Impression: Continue Ritalin per home dosage. is going to bring this in.
--- NOTE | 2024-10-20 10:18 | Discharge Summary ---
"Discharge Summary Admit Date: 10/17/24 Discharge Date: 10/20/24 Discharging Provider: Dr. Tamara Flores Primary Care Provider: Elan Trent Code Status: Attempt Resuscitation [facility] DIAGNOSES Admission Diagnoses: Sepsis secondary to influenza A NISHA Multiple falls COPD without acute exacerbation Bipolar disorder Hypertension History of prostate cancer ADHD Discharge Diagnoses with Status of Each Condition: Acute hypoxic respiratory failureresolved. Likely due to influenza A causing COPD exacerbation. Complete 5-day course of prednisone, 3-day course of azithromycin completed. Continue home inhalers on discharge. Influenza Acomplete Tamiflu course. Kidney injuryresolved. Patient has a history of chronic kidney disease, creatinine is around baseline 1.3-1.6. Bipolar 1 disordercontinue home medications including Lexapro, Ritalin. Hypertensioncontinue metoprolol. Prostate cancerFoley initially placed for retention on 10/17. Removed yesterday, no further retention noted. Continue bladder scans as needed. ADHDcontinue Ritalin per home dosage. HPI History of Present Illness: Per Dr. Jerez: 89 yo M who presented with confusion. His voice is very gurgled so it is difficult to understand his responses to questions but his response to the year is 2024. He is also oriented to his full name. He denies any issue with memory. He got his flu shot. He also denies any prior knowledge of kidney problems or weak kidneys. He denies any need for assistance walking at home at baseline. CONSULTS | PROCEDURES Consultations: Physical therapy, occupational therapy, social work Procedures: Chest x-ray HOSPITAL COURSE Hospital Course: Patient is a 89-year-old male with a history of COPD on home oxygen who presented initially after being found down, as well as for confusion. He was found to be influenza A positive. He required 2 L of oxygen. He was started on Tamiflu, DuoNebs [id number], as well as prednisone and azithromycin for his COPD treatment exacerbation likely triggered by the influenza. His confusion started to improve on day 2 of hospitalization. He was started on his home medication including his large dose of Ritalin that he has been taking for a few years. His oxygen was weaned down, and he is now on room air. He did have some urinary retention while here, and a Jo was placed. The Jo was removed yesterday, and patient has not had any further episodes of retention at this time. Physical therapy and Occupational Therapy did work with the patient, and they believe that he would benefit from some skilled rehab. Patient and patient's were spoken with, and they were agreeable to this at this time. He was discharged to [facility]. ALLERGIES Allergies Allergy/AdvReac Type Severity Reaction Status Date / Time No Known Drug Allergies Allergy Verified 10/17/24 01:46 MEDICATIONS Ambulatory Orders Medication Instructions Recorded Confirmed escitalopram oxalate 20 mg tablet 20 mg PO DAILY 09/19/13 10/17/24 (Lexapro) budesonide-formoterol HFA 160 2 inh inhalation BID 06/09/24 10/17/24 mcg-4.5 mcg/actuation aerosol inhaler (Symbicort) cholecalciferol (vitamin D3) 25 25 mcg PO DAILY 06/09/24 10/17/24 mcg (1,000 unit) capsule clobetasol 0.05 % topical ointment 1 applic topical BID 06/09/24 10/17/24 fexofenadine 180 mg tablet 180 mg PO BID 06/09/24 10/17/24 fluoride (sodium) 1.1 % dental 1 applic dental QDAY 06/09/24 10/17/24 paste (Clinpro 5000) terbinafine HCl 250 mg tablet 250 mg PO QDAY 06/09/24 10/17/24 triamcinolone acetonide 0.1 % 1 applic topical DAILY 06/09/24 10/17/24 topical cream rosuvastatin 20 mg tablet See Rx Instructions .Route 07/06/24 10/17/24 .COMPLEX #90 tabs clobetasol 0.05 % scalp solution 1 applic topical BID 07/18/24 10/17/24 upadacitinib 30 mg tablet,extended 30 mg PO DAILY 07/18/24 10/17/24 release 24 hr (Rinvoq) albuterol sulfate 90 mcg/actuation 2 puff inhalation Q6H PRN 07/27/24 10/17/24 aerosol inhaler (Ventolin HFA) shortness of breath or wheezing #8.5 grams sildenafil 25 mg tablet (Viagra) 25 mg PO QDAY PRN sexual activity 08/05/24 10/17/24 #30 tabs alfuzosin 10 mg tablet,extended 10 mg PO DAILY 10/17/24 10/17/24 release 24 hr methylphenidate HCl 10 mg tablet See Rx Instructions PO .COMPLEX 10/17/24 10/17/24 (Ritalin) metoprolol succinate 25 mg 50 mg PO DAILY 10/17/24 10/17/24 tablet,extended release 24 hr metoprolol succinate 25 mg 25 mg PO DAILY #30 tabs 10/20/24 tablet,extended release 24 hr oseltamivir 30 mg capsule 30 mg PO BID 2 days #4 caps 10/20/24 oseltamivir 30 mg capsule (Tamiflu) 30 mg PO BID 2 days #3 caps 10/20/24 prednisone 20 mg tablet 40 mg (2 x 20 mg) PO DAILYWM 2 10/20/24 days #4 tabs PHYSICAL EXAM AT DISCHARGE General Appearance: positive No acute distress and Alert; negative Anxious Eyes Bilateral: positive Normal inspection, PERRL and EOMI ENT: positive ENT inspection nml, Pharynx nml and No signs of dehydration Neck: positive Nml inspection, Thyroid nml and No JVD Respiratory: positive Chest non-tender, No respiratory distress, Breath sounds nml and Rales (mild bibasilar crackles noted) Cardiovascular: positive Regular rate & rhythm, No murmur and No gallop; negative Tachycardia, Bradycardia or Diastolic murmur Peripheral Pulses: positive 2+ Abdomen: positive Non-tender; negative Guarding, Rebound, Hepatomegaly, Splenomegaly or Mass Back: positive Nml inspection; negative CVA tenderness (R) or CVA tenderness (L) Skin: positive Color nml, No rash, Warm and Dry Extremities: positive Non-tender, Full ROM and No pedal edema Neurologic/Psychiatric: positive Oriented x3, CN's nml (2-12) and Mood/affect nml LABS 10/20/24 05:48 10/20/24 05:48 DIAGNOSTIC IMAGING Diagnostic Imaging Results: Final report reviewed FOLLOW UP Follow Up: Follow up with primary care physician. TIME SPENT Time Spent in Discharge (Minutes): 35 Discharge Plan Discharge Patient Disposition: DC/Xfer Condition: Fair Prescriptions: New metoprolol succinate 25 mg Tablet Extended Release 24 Hr 25 mg PO DAILY Qty: 30 0RF oseltamivir 30 mg Capsule 30 mg PO BID 2 Days Qty: 4 0RF prednisone 20 mg Tablet 40 mg PO DAILYWM 2 Days Qty: 4 0RF oseltamivir [Tamiflu] 30 mg capsule 30 mg PO BID 2 Days Qty: 3 0RF Continued rosuvastatin 20 mg tablet See Rx Instructions .ROUTE .COMPLEX Qty: 90 3RF Dose Instruction: TAKE 1 TABLET BY MOUTH AT BEDTIME Rx Instructions: TAKE 1 TABLET BY MOUTH AT BEDTIME albuterol sulfate [Ventolin HFA] 90 mcg/actuation HFA aerosol inhaler 2 puff inhalation Q6H PRN (Reason: shortness of breath or wheezing) Qty: 8.5 3RF sildenafil [Viagra] 25 mg tablet 25 mg PO QDAY PRN (Reason: sexual activity) Qty: 30 1RF Rx Instructions: administer 30 minutes to 4 hours before activity escitalopram oxalate [Lexapro] 20 MG tablet 20 mg PO DAILY methylphenidate HCl [Ritalin] 10 mg tablet See Rx Instructions PO .COMPLEX Rx Instructions: take 3 tabs in am, 2 tabs at noon and 4 pm, and 1 tab in evening; BRAND ONLY alfuzosin 10 mg tablet extended release 24 hr 10 mg PO DAILY Rinvoq 30 mg tablet extended release 24 hr 30 mg PO DAILY clobetasol 0.05 % solution 1 applic topical BID budesonide-formoterol [Symbicort] 160-4.5 mcg/actuation HFA aerosol inhaler 2 inh inhalation BID terbinafine HCl 250 mg tablet 250 mg PO QDAY fluoride (sodium) [Clinpro 5000] 1.1 % paste 1 applic dental QDAY triamcinolone acetonide 0.1 % cream 1 applic topical DAILY clobetasol 0.05 % ointment 1 applic topical BID cholecalciferol (vitamin D3) 25 mcg (1,000 unit) capsule 25 mcg PO DAILY fexofenadine 180 mg tablet 180 mg PO BID Held metoprolol succinate 25 mg tablet extended release 24 hr 50 mg PO DAILY Hold Instructions: Resume on 11/17/24. Please hold until you follow up with your PCP and they recheck your blood pressure. It was low while you were in the hospital. Activity Restrictions: Activity as Tolerated Diet: Regular Health Concerns: You came in because you were confused, and you had a fall. You also had some shortness of breath, and your oxygen levels were low. You were found to have influenza A. We will continue you on some flu medication. We think the flu may have triggered a COPD exacerbation. You completed 3 days of antibiotics for this. You have 2 more days of your steroid and your antiviral medication left. Please continue your inhalers on discharge. While you were here, we talked to you about your frequent falls, as well as your weakness. We think you may benefit from some skilled therapy to help get you back on your feet, and feeling stronger. We decided on [facility], right across the street. While you were here, your blood pressure was on the lower side. We cut your metoprolol in half (25 mg daily) - please continue this dose until you see your primary care provider and they recheck your blood pressure. We are glad you are feeling better, thank you for allowing us to take care of you. Print Language: Tongan Patient Instructions: Flu Stand Alone Forms: SNF Discharge, PCP List"
[2024-10-20 14:05] VITALS: BP 123/76; TEMP 97.9; O2SAT 91
== END 2024-10-20 14:35 | DRG 871 ==
LOC: ED 01:31 → MS2 03:14
PROVIDERS: ADMIT Internal Medicine; ATTEND Internal Medicine
DX: A41.89 Other specified sepsis; N18.9 Chronic kidney disease, unspecified; F90.0 Attention-deficit hyperactivity disorder, predominantly inattentive type; Z91.81 History of falling; Z20.818 Contact with and (suspected) exposure to other bacterial communicable diseases; F31.9 Bipolar disorder, unspecified; J96.01 Acute respiratory failure with hypoxia; R33.9 Retention of urine, unspecified; J11.81 Influenza due to unidentified influenza virus with encephalopathy; Z20.828 Contact with and (suspected) exposure to other viral communicable diseases; I12.9 Hypertensive chronic kidney disease with stage 1 through stage 4 chronic kidney disease, or unspecified chronic kidney disease; Z91.85 Personal history of military service; J10.1 Influenza due to other identified influenza virus with other respiratory manifestations; N17.9 Acute kidney failure, unspecified; Z87.891 Personal history of nicotine dependence; Z20.822 Contact with and (suspected) exposure to COVID-19; Z79.899 Other long term (current) drug therapy; J44.9 Chronic obstructive pulmonary disease, unspecified; Z85.46 Personal history of malignant neoplasm of prostate